=== PATIENT | female | born 1945 | race Caucasian/White ===

== ENCOUNTER 2020-02-27 14:55 | Inpatient (IN) ==
[2020-02-27] MEDS ORDERED: 0.9 % SODIUM CHLORIDE 1,000 ML IV ONE ×2 (15:09)
--- NOTE | 2020-02-27 16:25 | Emergency Department Note ---
Weakness HPI - General Chief complaint: Weakness Stated complaint: Increased labs Time Seen by Provider: 02/27/20 15:05 Source: patient Mode of arrival: ambulatory Limitations: no limitations - History of Present Illness HPI Narrative: 74-year-old female presents with general fatigue and concerned about lab results. Saw her primary care provider this morning and her BUN and creatinine were high as well as her potassium and she was sent to the ER for further evaluation. Dr. Patel with nephrology did call ahead to let us know the patient is coming. This is not a patient that is known to her but she was apparently consulted. Pt denies cough, cold symptoms, fever or chills. No nausea, vomiting, or diarrhea. She denies denies any new change in diet or medications. Has no idea what could be causing this. States she has drink a lot of fluid today and she does not think she is voiding much at all. - Related Data Home Medications Medication Instructions Recorded Confirmed dietary supplement 1 cap PO QDAY cap 07/14/16 02/27/20 pyridoxine (vitamin B6) 100 mg 100 mg PO QDAY tab 07/14/16 02/27/20 tablet vitamin B complex 1 tab PO QDAY tab 07/14/16 02/27/20 polyethylene glycol 3350 17 17 g PO QDAY PRN 01/06/17 12/07/19 gram/dose oral powder fluticasone furoate 200 1 inh INHALATION QDAY 08/18/17 02/27/20 mcg/actuation blister powder for inhalation cholecalciferol (vitamin D3) 25 1,000 unit PO QDAY 06/20/19 02/27/20 mcg (1,000 unit) capsule colesevelam 625 mg tablet 1,875 mg PO QDAY tab 06/20/19 12/07/19 multivitamin 1 dose PO QDAY 06/20/19 02/27/20 nystatin 100,000 unit/gram topical 1 applic TOPICAL TID PRN 06/20/19 12/07/19 cream spironolactone 100 mg tablet 100 mg PO QDAY 09/29/19 02/27/20 mometasone 100 mcg/actuation HFA 1 puff INHALATION BID 11/29/19 02/27/20 aerosol inhaler tiotropium 2.5 mcg-olodaterol 2.5 2 puff INHALATION QDAY 11/29/19 12/07/19 mcg/actuation mist for inhalation albuterol sulfate 2.5 mg INHALATION BID ml 11/30/19 02/27/20 lovastatin 20 mg tablet 20 mg PO QDAY 02/09/20 02/27/20 [Accu-Chek Compact Test strips] 0 er SQ .MEDSUPPLY 02/27/20 02/27/20 Previous Rx's Medication Instructions Recorded lovastatin 20 mg tablet 20 mg PO QHS #90 tab 08/30/19 potassium chloride 10 mEq 10 meq PO BID #60 tab 08/30/19 tablet,extended release gabapentin 100 mg capsule 100 mg PO QHS #30 cap 11/22/19 propranolol 40 mg tablet 20 mg PO QDAY #60 tab 12/06/19 metformin 500 mg tablet 500 mg PO BID #60 tab 12/07/19 loratadine 10 mg tablet 10 mg PO QDAY #90 tab 12/09/19 lisinopril 10 mg tablet 10 mg PO QDAY #90 tab 12/20/19 levothyroxine 25 mcg tablet See Rx Instructions .ROUTE 12/30/19 .COMPLEX #60 tablet furosemide 40 mg tablet See Rx Instructions .ROUTE 01/24/20 .COMPLEX #60 tablet alendronate 70 mg tablet See Rx Instructions .ROUTE 02/06/20 .COMPLEX #8 unknown measurement unit code: tablet sodium polystyrene sulfonate 15 60 ml PO QDAY #473 ml 02/27/20 gram/60 mL oral suspension Allergies Allergy/AdvReac Type Severity Reaction Status Date / Time Zolpidem [From Ambien] Allergy Unknown hallucinati Verified 02/27/20 15:18 ons lovastatin [From Mevacor] AdvReac Intermediate ELEVATED Verified 11/30/19 09:07 LFT Dhhfszb-Wwe-Ona Reductase AdvReac Intermediate ELEVATED Verified 02/27/20 15:18 Inhibitor LFT Review of Systems All systems ED: reviewed and negative except as stated. Past Medical History - Past Medical History COUNT INCLUDES THE [facility] Narrative: Medical History (Last Updated 02/09/20 @ 08:56 by Addie Castillo) Annual physical exam (Chronic) Severe persistent asthma with (acute) exacerbation (Chronic) Osteopenia after menopause (Chronic) Adenomatous colon polyp (Chronic) Anxiety (Chronic) Hyperlipidemia (Chronic) Schizoaffective disorder (Chronic) Hypothyroidism (Chronic) Hypertension (Chronic) Sleep disorder (Inactive) Atypical mole (Chronic) Candidiasis (Chronic) Alcohol abuse (Chronic) Lesion of liver (Chronic) ESRD (end stage renal disease) (Chronic) Steatosis of liver (Chronic) Other pruritus (Chronic) Obesity (BMI 30-39.9) (Chronic) Hamstring strain (Acute) Osteoarthritis of right knee (Acute) Deltoid tendinitis of left shoulder (Resolved) History of gallstones (Chronic) Hyperreflexic bladder (Chronic) Non-ulcer dyspepsia (Chronic) Encounter for Health Maintenance Examination in Adult (Chronic) DM w/o complication type II (Chronic 02/22/15) Asthma (Chronic) Edema (Chronic) Degenerative arthritis (Chronic) Dyslipidemia (Inactive) Elevated LFTs (Chronic) Fatty liver disease, nonalcoholic (Chronic) Cholecystitis with cholelithiasis (Chronic) Pelvic swelling, RLQ (Chronic) Insomnia (Chronic) Osteoporosis screening (Chronic) Diverticulitis of colon (Chronic) Hyperplastic colon polyp (Chronic) Dermolipoma (Chronic) Past Surgical History (Last Reviewed 12/07/19 @ 09:31 by JOSHUA Gordon) History of total right knee replacement (TKR) (Chronic ~2015) S/P excision of lipoma (Resolved 08/25/14) Hx of colonoscopy with polypectomy (Chronic 03/25/16) Medical history: Reports: other Surgical history ED: Reports: no surgical history - Social History smoking status: Never smoker Alcohol use: Reports: None Drug use: Reports: none Physical Exam Limitations: no limitations General appearance: alert Head: atraumatic, normocephalic, normal inspection Eye: Present: normal appearance. Absent: conjunctival injection ENT: Present: mucous membranes moist Chest: Present: symmetric chest wall rise Respiratory: Present: normal lung sounds bilaterally. Absent: respiratory distress, rales/crackles, wheezes, accessory muscle use Cardiovascular: Present: regular rate, normal heart sounds Abdominal: Present: soft, normal bowel sounds. Absent: distention, tenderness, guarding, mass Extremities: Present: normal inspection Neurological: Present: alert, oriented X3 Psychiatric: Present: normal affect, normal mood Skin: Present: warm, dry, intact, normal color. Absent: rash Course Course Narrative: Patient did void over 500 mils and was bladder scanned for 0 postvoid residual. We did hydrate the patient with 2 L of fluid but her being BUN and creatinine remains elevated and potassium is still 5.7. At 1800 I did speak with Dr. Gutierrez, hospitalist who agrees to accept this patient. Dr. Patel will consult. She would also like us to give the patient 40 mg of Lasix IV and we will put in a Dillon for strict I & O. Vital Signs Temperature 97.0 F 02/27/20 14:59 Pulse Rate 56 L 02/27/20 14:59 Respiratory Rate 18 02/27/20 14:59 Blood Pressure 114/62 02/27/20 14:59 Pulse Oximetry (%) 100 02/27/20 14:59 Temperature 97.0 F 02/27/20 14:59 Pulse Rate 60 02/27/20 17:53 Respiratory Rate 18 02/27/20 17:53 Blood Pressure 126/66 02/27/20 17:46 Pulse Oximetry (%) 100 02/27/20 17:53 Weakness - Lab Data Lab results reviewed: Yes I reviewed the patient's lab results. Result diagrams: 02/27/20 16:54 Lab Results 02/27/20 Range/Units 16:54 Sodium 123 L (133-145) mmol/L Potassium 5.7 H (3.3-5.1) mmol/L Chloride 91 L (96-108) mmol/L Carbon Dioxide 19 L (22-30) mmol/L Anion Gap 13.0 (8-16) BUN 82 H (8-23) mg/dl Creatinine 2.2 H (0.6-1.1) mg/dl GFR Calculation 21 Glucose 98 (70-105) mg/dL Calcium 9.5 (8.6-10.4) mg/dl Total Bilirubin 0.4 (0.0-1.0) mg/dL AST 20 (0-37) U/l ALT 16 (0-40) U/l Alkaline Phosphatase 50 (39-117) U/L Total Protein 7.3 (5.9-8.4) gm/dL Albumin 4.2 (3.2-5.2) gm/dL Globulin 3.1 (2.2-3.7) gm/dL Albumin/Globulin Ratio 1.4 (1.0-2.3) - Radiology Data Radiology results reviewed: Yes I reviewed the patient's radiology results. Disposition Pt seen by RADIATION OFFICER/PA only: Yes Clinical Impression: Renal failure, Hyperkalemia, Fatigue Disposition: Xfer As Inpt ([facility]) Condition: Fair Referrals: Pat Rivers ARNP [Primary Care Provider] -
[2020-02-27 17:50] LABS: ALT/SGPT 16 U/l (0-40); AST/SGOT 20 U/l (0-37); Albumin 4.2 gm/dL (3.2-5.2); Albumin/Globulin Ratio 1.4 (1.0-2.3); Alkaline Phosphatase 50 U/L (39-117); Bilirubin,Total 0.4 mg/dL (0.0-1.0); Blood Urea Nitrogen 82 mg/dl (8-23); Calcium 9.5 mg/dl (8.6-10.4); Carbon Dioxide 19 mmol/L (22-30); Globulin 3.1 gm/dL (2.2-3.7); Glomerular Filtration Rate 21; Glucose 98 mg/dL (70-105)
[2020-02-27 17:57] LABS: Chloride 91 mmol/L (96-108)
[2020-02-27] MEDS ORDERED: FUROSEMIDE 40 MG/4 ML VIAL IV ONE (18:02)
[2020-02-27] MEDS ORDERED: DEXTROSE 50% 50 ML VIAL IV PRN (19:35)
[2020-02-27] MEDS ORDERED: POLYETHYLENE GLYCOL 3350 17 GM PACKET PO PRN (19:35)
[2020-02-27] MEDS ORDERED: ONDANSETRON 4 MG/2 ML VIAL IV PRN (19:35)
[2020-02-27] MEDS ORDERED: ONDANSETRON 4 MG ODT TABLET SL PRN (19:35)
[2020-02-27] MEDS ORDERED: ACETAMINOPHEN 325 MG TABLET PO PRN (19:35)
[2020-02-27] MEDS ORDERED: DEXTROSE 31 GM ORAL.SUSP PO PRN (19:35)
[2020-02-27] MEDS ORDERED: ACETAMINOPHEN 650 MG/65 ML BOTTLE IV PRN (19:35)
[2020-02-27] MEDS ORDERED: BISACODYL 10 MG SUPP.RECT PR PRN (19:35)
--- NOTE | 2020-02-27 19:38 | Internal Med History&Physical ---
Medical - H&P: [facility] Patient information: Note initiated : 02/27/20 at 7:37 pm Service Date, if different from initiated Date: [] Patient: Shelia Saucedo a 74 y/o F admitted on for Increased labs. Chief Complaint: [] Chief complaint: Acute renal failure History of present illness: Ms. Saucedo is a 74 year old F with a history of diabetes/hypertension/schizoaffective disorder liver cirrhosis who presents to the ER after progressive weakness that evolved over the last 4 weeks. Her symptoms have gotten worse with increasing fatigue, malaise, difficulty functioning. She lives with her and has been trying to figure out what might be causing her symptoms. With increasing concerns today underwent evaluation and was directed to the ER with abnormal labs from her PCP. Initial work-up was consistent with acute renal failure with a BUN 82, creatinine 2.2, sodium 133 and potassium 5.7. Nephrology and hospitalist service was consulted for evaluation. At the time of my evaluation patient is alert and was able to answer most the question. She denies recent NSAID intake or diarrhea, nausea, vomiting, fever or chills. She further denies difficulty urinating or increasing frequency. She denies generalized body or extremity swelling. She endorses to less frequent voiding. Review of systems 10 point review system was performed and is negative except for ones cussed above Medical - H&P: PMH Medical history: Adenomatous colon polyp (Chronic) Anxiety (Chronic) Hyperlipidemia (Chronic) Schizoaffective disorder (Chronic) Hypothyroidism (Chronic) Hypertension (Chronic) Sleep disorder (Inactive) Atypical mole (Chronic) Candidiasis (Chronic) Alcohol abuse (Chronic) Lesion of liver (Chronic) ESRD (end stage renal disease) (Chronic) Steatosis of liver (Chronic) Other pruritus (Chronic) Obesity (BMI 30-39.9) (Chronic) Hamstring strain (Acute) Osteoarthritis of right knee (Acute) Deltoid tendinitis of left shoulder (Resolved) History of gallstones (Chronic) Hyperreflexic bladder (Chronic) Non-ulcer dyspepsia (Chronic) Encounter for Health Maintenance Examination in Adult (Chronic) DM w/o complication type II (Chronic 02/22/15) Currently Diet Treated Asthma (Chronic) Longstanding hx and has been seen by Dr. Peterson in the past but now followed routinely by Dr. Montejo and stable on current inhalers. Edema (Chronic) Chronic stasis, stable on Lasix. Degenerative arthritis (Chronic) Predominantly knees and low back- no new medication interactions at this point.Inc rt knee pain 12/2016 Dyslipidemia (Inactive) Been off the Medacor now for a full year since 2011. See hyperlipidemia Elevated LFTs (Chronic) fatty liver//alcohol overuse Fatty liver disease, nonalcoholic (Chronic) Cholecystitis with cholelithiasis (Chronic) Abdominal US in 1999 showing gallstones; CT in 07/2008 showing gallstones and fatty liver. Pelvic swelling, RLQ (Chronic) Left groin nodule, questionable etiology. Prob lipoma--CT 07/2013 w/ small rt ing hernia, follow up if changes or pain. Insomnia (Chronic) Hx of stress reaction insomnia, now off all medications in this regard and stable. Osteoporosis screening (Chronic) Normal bone density with a spinal T-score of -0.6 and hip -0.3 and stable vitamin D level 12/2009; anticipate a 5 year screening. Diverticulitis of colon (Chronic) Colonoscopy in 2005 revealing diverticuli and hyperplastic polyp, theoretically due for screening at the 10 year point but will update if constipation persists. Hyperplastic colon polyp (Chronic) Colonoscopy in 2005 revealing diverticuli and hyperplastic polyp, theoretically due for screening at the 10 year point but will update if constipation persists. Dermolipoma (Chronic) Surgical History History of total right knee replacement (TKR) (Chronic ~2015) S/P excision of lipoma (Resolved 08/25/14) Removal of lipoma left groin Hx of colonoscopy with polypectomy (Chronic 03/25/16) 03/16/06 Hyperplastic polyp and some evidence of diverticulitis, treated to clinical resolution. Theoretically due for screening at the 10 year point but will update if constipation persists.03/2016-lars polyps,recheck 5yr Family History Aunt Malignant neoplasm of breast Sister Heart problem, Onset Age: 62 some type of heart trouble Obesity Brother Acute myocardial infarction One brother had one at age 62 and a second brother at age 56. Social History household members: spouse housing: house lives independently: Yes marital status: occupational status: retired physical activity: none frequency: other smoking status: Never smoker alcohol intake frequency: 2+ drinks per day substance use type: does not use Medical - H&P: Meds Home Medications Medication Instructions Recorded Confirmed Type dietary supplement 1 cap PO QDAY cap 07/14/16 02/27/20 History pyridoxine (vitamin B6) 100 mg 100 mg PO QDAY tab 07/14/16 02/27/20 History tablet vitamin B complex 1 tab PO QDAY tab 07/14/16 02/27/20 History cholecalciferol (vitamin D3) 25 1,000 unit PO QDAY 06/20/19 02/27/20 History mcg (1,000 unit) capsule colesevelam 625 mg tablet 1,875 mg PO QDAY tab 06/20/19 02/28/20 History multivitamin 1 dose PO QDAY 06/20/19 02/27/20 History nystatin 100,000 unit/gram topical 1 applic TOPICAL TID PRN 06/20/19 02/27/20 History cream lovastatin 20 mg tablet 20 mg PO QHS #90 tab 08/30/19 02/27/20 Rx spironolactone 100 mg tablet 100 mg PO QDAY 09/29/19 02/27/20 History gabapentin 100 mg capsule 100 mg PO QHS #30 cap 11/22/19 02/27/20 Rx mometasone 100 mcg/actuation HFA 2 puff INHALATION DAILY 11/29/19 02/27/20 History aerosol inhaler tiotropium 2.5 mcg-olodaterol 2.5 2 puff INHALATION QDAY 11/29/19 02/27/20 History mcg/actuation mist for inhalation albuterol sulfate 2.5 mg INHALATION DAILY ml 11/30/19 02/27/20 History propranolol 40 mg tablet 20 mg PO QDAY #60 tab 12/06/19 02/27/20 Rx loratadine 10 mg tablet 10 mg PO QDAY #90 tab 12/09/19 02/27/20 Rx lisinopril 10 mg tablet 10 mg PO QDAY #90 tab 12/20/19 02/27/20 Rx alendronate 70 mg tablet See Rx Instructions .ROUTE 02/06/20 02/28/20 Rx .COMPLEX #8 unknown measurement unit code: tablet [Accu-Chek Compact Test strips] 0 er SQ DAILY 02/27/20 02/27/20 History Furosemide [Lasix] 40 mg PO BID 02/27/20 02/27/20 History Levothyroxine Sodium 50 mcg PO ACB 02/27/20 02/28/20 History Potassium Chloride [K-Tab ER] 10 meq PO DAILY 02/27/20 02/27/20 History metFORMIN HCL [Glucophage] 500 mg PO BID 02/27/20 02/28/20 History sodium polystyrene sulfonate 15 60 ml PO QDAY #473 ml 02/27/20 02/28/20 Rx gram/60 mL oral suspension Allergies Allergy/AdvReac Type Severity Reaction Status Date / Time lovastatin [From Mevacor] AdvReac Intermediate ELEVATED Verified 02/27/20 22:20 LFT Vxoslnn-Sgo-Uur Reductase AdvReac Intermediate ELEVATED Verified 02/27/20 22:20 Inhibitor LFT Zolpidem [From Ambien] AdvReac Mild hallucinati Verified 02/29/20 08:11 ons Medical - H&P: Exam - Constitutional Vitals: Temp Pulse Resp BP Pulse Ox 97.0 F 55 L 19 123/68 100 02/27/20 14:59 02/27/20 19:31 02/27/20 19:31 02/27/20 19:31 02/27/20 19:31 General appearance: no acute distress, obese Exam: Fatigue lethargic Head normocephalic Oral cavity dry No ear nose discharge Neck no lymphadenopathy S1-S2 occasionally irregular rhythm no murmur Diminished breath sounds bases Abdomen soft nontender Lower extremity no sinus clubbing or joint swelling Skin no suspicious lesion Psych alert cooperative Neuro nonfocal Medical - H&P: Reslt - Labs CBC & Chem 7: 02/29/20 05:20 02/29/20 05:20 Labs: BMP 02/27/20 16:54 Sodium 123 L Potassium 5.7 H Chloride 91 L Carbon Dioxide 19 L BUN 82 H Creatinine 2.2 H Glucose 98 Calcium 9.5 Liver Function 02/27/20 Range/Units 16:54 Total Bilirubin 0.4 (0.0-1.0) mg/dL AST 20 (0-37) U/l ALT 16 (0-40) U/l Alkaline Phosphatase 50 (39-117) U/L Albumin 4.2 (3.2-5.2) gm/dL Medical - H&P: A/P (1) MADINA (acute kidney injury) Current visit: Yes Status: Acute * Acute kidney injury likely second to volume depletion/diuretic use/JUAN inhibit or. nephrology consulted. Creatinine 2.2/BUN 82. Further management per nephrology * Hyperkalemia secondary MADINA. Potassium 6.1 management per nephrology * Hyponatremia likely euvolemic-check urine and serum osmolality. Free water restriction * History of cirrhosis-Patient has been on spironolactone/Lasix. No significant ascites. Well compensated. * DM type II-continue sliding-scale insulin/diabetic diet * History of hypertension held JUAN inhibitor in light of acute kidney injury * Hypothyroidism on levothyroxine * History of reactive airway disease continue tiotropium * Hyperlipidemia continue statin * Neuropathy on gabapentin * Prophylax Heparin * Full code Plan * Inpatient admission * Renal failure/hyperkalemia/hyponatremia management per nephrology * Pre-existing medical condition management as above * Diabetic diet/PT OT * Discharge planning Medical - H&P: Qual - Stroke Symptom Onset Unknown: No
--- NOTE | 2020-02-27 20:14 | Nephrology Consult Note ---
History of Present Illness - Reason for Consult Patient information: Note initiated : 02/27/20 at 8:11 pm Service Date, if different from initiated Date: [] Patient: Shelia Saucedo 74 y/o F admitted on for Increased labs. Chief Complaint: [] - History of Present Illness 74-year-old female who presented to the ED for an evaluation and management of MADINA On the day of admission I was asked to review this patient's labs by her PCP. Her PCP referred her to the ER but she initially declined to be seen in the ED. Upon review of labs she had hyperkalemia, azotemia, and MADINA. She is a patient with cirrhosis (fatty liver disease/combination with alcohol consumption), sober for 1 year, schizoaffective disorder, HTN. baseline Scr ~1.9 in november 2019. Reports she drank "a lot of fluids "but she was unable to urinate. Denies NSAID consumption, no recent imaging studies with dye. Review of Systems Constitutional: fatigue, no anorexia, no lethargy Nose, mouth and throat: no disequilibrium, no dizziness Cardiovascular: as per HPI, no edema, no palpatations Respiratory: no cough, no dyspnea Gastrointestinal: no abdominal pain, no change in bowel habits, no diarrhea, no melena, no nausea, no vomiting Musculoskeletal: no joint swelling Neurological: no confusion, no convulsions, no dizziness, no focal weakness, no syncope Past History Past medical history: Medical History (Last Updated 02/09/20 @ 08:56 by Addie Castillo) Annual physical exam (Chronic) Severe persistent asthma with (acute) exacerbation (Chronic) Osteopenia after menopause (Chronic) Adenomatous colon polyp (Chronic) Anxiety (Chronic) Hyperlipidemia (Chronic) Schizoaffective disorder (Chronic) Hypothyroidism (Chronic) Hypertension (Chronic) Sleep disorder (Inactive) Atypical mole (Chronic) Candidiasis (Chronic) Alcohol abuse (Chronic) Lesion of liver (Chronic) ESRD (end stage renal disease) (Chronic) Steatosis of liver (Chronic) Other pruritus (Chronic) Obesity (BMI 30-39.9) (Chronic) Hamstring strain (Acute) Osteoarthritis of right knee (Acute) Deltoid tendinitis of left shoulder (Resolved) History of gallstones (Chronic) Hyperreflexic bladder (Chronic) Non-ulcer dyspepsia (Chronic) Encounter for Health Maintenance Examination in Adult (Chronic) DM w/o complication type II (Chronic 02/22/15) Asthma (Chronic) Edema (Chronic) Degenerative arthritis (Chronic) Dyslipidemia (Inactive) Elevated LFTs (Chronic) Fatty liver disease, nonalcoholic (Chronic) Cholecystitis with cholelithiasis (Chronic) Pelvic swelling, RLQ (Chronic) Insomnia (Chronic) Osteoporosis screening (Chronic) Diverticulitis of colon (Chronic) Hyperplastic colon polyp (Chronic) Dermolipoma (Chronic) Past surgical history: Past Surgical History (Last Reviewed 12/07/19 @ 09:31 by JOSHUA Gordon) History of total right knee replacement (TKR) (Chronic ~2015) S/P excision of lipoma (Resolved 08/25/14) Hx of colonoscopy with polypectomy (Chronic 03/25/16) Past family history: Family History (Last Reviewed 12/07/19 @ 09:31 by JOSHUA Gordon) Aunt Malignant neoplasm of breast Sister Heart problem, Onset Age: 62 Obesity Brother Acute myocardial infarction Denies family history of renal failure, renal stones Past social history: Social History , retired. Does not smoke. No alcoholic drink in 1 year Medications and Allergies Home Medications Medication Instructions Recorded Confirmed Type dietary supplement 1 cap PO QDAY cap 07/14/16 02/27/20 History pyridoxine (vitamin B6) 100 mg 100 mg PO QDAY tab 07/14/16 02/27/20 History tablet vitamin B complex 1 tab PO QDAY tab 07/14/16 02/27/20 History cholecalciferol (vitamin D3) 25 1,000 unit PO QDAY 06/20/19 02/27/20 History mcg (1,000 unit) capsule colesevelam 625 mg tablet 1,875 mg PO QDAY tab 06/20/19 02/28/20 History multivitamin 1 dose PO QDAY 06/20/19 02/27/20 History nystatin 100,000 unit/gram topical 1 applic TOPICAL TID PRN 06/20/19 02/27/20 History cream lovastatin 20 mg tablet 20 mg PO QHS #90 tab 08/30/19 02/27/20 Rx spironolactone 100 mg tablet 100 mg PO QDAY 09/29/19 02/27/20 History gabapentin 100 mg capsule 100 mg PO QHS #30 cap 11/22/19 02/27/20 Rx mometasone 100 mcg/actuation HFA 2 puff INHALATION DAILY 11/29/19 02/27/20 History aerosol inhaler tiotropium 2.5 mcg-olodaterol 2.5 2 puff INHALATION QDAY 11/29/19 02/27/20 History mcg/actuation mist for inhalation albuterol sulfate 2.5 mg INHALATION DAILY ml 11/30/19 02/27/20 History propranolol 40 mg tablet 20 mg PO QDAY #60 tab 12/06/19 02/27/20 Rx loratadine 10 mg tablet 10 mg PO QDAY #90 tab 12/09/19 02/27/20 Rx lisinopril 10 mg tablet 10 mg PO QDAY #90 tab 12/20/19 02/27/20 Rx alendronate 70 mg tablet See Rx Instructions .ROUTE 02/06/20 02/28/20 Rx .COMPLEX #8 unknown measurement unit code: tablet [Accu-Chek Compact Test strips] 0 er SQ DAILY 02/27/20 02/27/20 History Furosemide [Lasix] 40 mg PO BID 02/27/20 02/27/20 History Levothyroxine Sodium 50 mcg PO ACB 02/27/20 02/28/20 History Potassium Chloride [K-Tab ER] 10 meq PO DAILY 02/27/20 02/27/20 History metFORMIN HCL [Glucophage] 500 mg PO BID 02/27/20 02/28/20 History sodium polystyrene sulfonate 15 60 ml PO QDAY #473 ml 02/27/20 02/28/20 Rx gram/60 mL oral suspension Allergies Allergy/AdvReac Type Severity Reaction Status Date / Time lovastatin [From Mevacor] AdvReac Intermediate ELEVATED Verified 02/27/20 22:20 LFT Pcufsie-Nkw-Sme Reductase AdvReac Intermediate ELEVATED Verified 02/27/20 22:20 Inhibitor LFT Zolpidem [From Ambien] AdvReac Mild hallucinati Verified 02/29/20 08:11 ons Exam - Vital Signs Vital signs: Temp Pulse Resp BP Pulse Ox 36.1 C 64 9 L 130/51 100 02/27/20 14:59 02/27/20 20:01 02/27/20 20:01 02/27/20 20:01 02/27/20 20:01 - General Appearance General appearance: obese Exam Narrative: General no acute distress. Obese with BMI 34.7 HEENT head normocephalic, atraumatic. Eyes nonicteric sclera. Moist oral mucosa Neck no JVD Respiratory nonlabored respirations, on room air, lungs clear to auscultation bilaterally Cardiovascular regular rate and rhythm, no rubs, no gallop. No lower extremity edema. Abdomen soft, distended, nontender, present bowel sounds Neurologic no asterixis, alert, oriented, clear speech, moves all extremities Skin is warm and dry, no rashes on exposed areas Psychiatric patient appears concerned with her current kidney function appropriate affect. Results - Lab Results 02/29/20 05:20 02/29/20 05:20 Most recent lab results Calcium 9.5 mg/dl (8.6-10.4) 02/27/20 16:54 Assessment and Plan (1) MADINA (acute kidney injury) Status: Acute Priority: High (2) Azotemia Status: Acute Priority: Medium (3) Hyperkalemia Status: Acute Priority: High (4) Fatigue Status: Acute - Narrative A/P Narrative: This is a late entry for the visit and emergency department 02/27/2020 MADINA; probable CKD Hyperkalemia Within the limitation of not having a blood gas, suspect metabolic acidosis in the setting of MADINA Severe azotemia, no wilmer uremia. By the time I saw the patient she had received approximately 2 L of normal saline. check ua, renal ultrasound, urine osm, urine Na, urea and K check serum osmolality, with renal function panel. recheck serum Na in 4 hours. strict I/O avoid nephrotoxins. no ACEi, no metformin, no Mg of phospate containing stool softeners. agree to hold spironolactone. It will take a few days for the spironolactone to clear out of her system, provided she continues to have urine output, I expect her hyperkalemia to resolve slowly.
[2020-02-27] MEDS ORDERED: LOVASTATIN 20 MG TABLET PO SCH (21:00)
[2020-02-27] MEDS: GABAPENTIN 100 MG CAPSULE PO SCH (21:55)
[2020-02-27] MEDS: DOCUSATE SODIUM 100 MG CAPSULE PO SCH (21:55)
[2020-02-27] MEDS: SENNOSIDES/DOCUSATE SODIUM 1 TAB TABLET PO SCH (21:55)
[2020-02-27] MEDS: SIMVASTATIN 10 MG TABLET PO SCH (21:56)
[2020-02-27] MEDS: 0.9 % SODIUM CHLORIDE 10 ML SYRINGE IV SCH (22:00)
[2020-02-27] MEDS: HEPARIN 5,000 UNIT/ML VIAL SQ SCH (22:01)
[2020-02-27 22:19] LABS: Appearance,Urine TURBID; Bilirubin,Urine NEG (NEG); Color,Urine YELLOW; Culture Indicated,Urine NO; Glucose,Urine (UA) NEGATIVE (NEG); Ketones,Urine NEG (NEG); Leukocyte Esterase,Urine NEG /uL (NEG); Nitrate,Urine NEG (NEG); Protein,Urine NEG (NEG); Urine Blood NEG mg/dL (<0.03); Urobilinogen,Urine NEG (NEG)
[2020-02-27] MEDS: INSULIN LISPRO 1 UNIT/0.01 ML UNIT SQ SCH (22:26)
[2020-02-27] MEDS: MELATONIN 3 MG TABLET PO PRN (22:27)
[2020-02-27 23:18] LABS: Sodium, Urine Random 98 mmol/L
[2020-02-27 23:36] LABS: Osmolality,Urine 267 mOsm/kg (80-1000)
[2020-02-28 06:39] LABS: Hematocrit 33.8 % (34.1-44.9); Hemoglobin 11.4 g/dL (11.2-15.7); Mean Cell Volume 93.4 fL (80.0-100.0); Mean Corpuscular HGB Conc 33.7 g/dL (31.0-36.0); Mean Platelet Volume 11.3 fL (7.4-10.4); Platelet Count 293 K/mcL (140-440); RBC 3.62 M/mcL (3.59-5.38); WBC 8.8 K/mcL (4.50-11.00)
--- NOTE | 2020-02-28 06:53 | Ultrasound Report ---
CLINICAL INFORMATION: Acute renal failure TECHNIQUE: Grayscale and color flow Doppler spectral imaging COMPARISON: None. FINDINGS: Right kidney measures 11.4 x 5.2 x 6.4 cm. Right renal pelvis is prominent consistent with extrarenal pelvis. There is no hydronephrosis. No solid or cystic mass. Renal cortex is mildly echogenic consistent with medical renal disease. Left kidney measures 10.4 x 4.4 x 4.2 cm. No solid or cystic mass. There is no hydronephrosis. Left renal cortex is mildly echogenic consistent with medical renal disease. There is a Dillon catheter in place and the bladder was not evaluated IMPRESSION: 1. No hydronephrosis. 2. Mildly echogenic renal cortex bilaterally Interpreted and Authenticated by: Claudio Flores 02/28/20
[2020-02-28 06:58] LABS: ALT/SGPT 15 U/l (0-40); AST/SGOT 18 U/l (0-37); Albumin 3.9 gm/dL (3.2-5.2); Albumin/Globulin Ratio 1.3 (1.0-2.3); Alkaline Phosphatase 45 U/L (39-117); Bilirubin,Direct < 0.2 mg/dL (0.0-0.3); Bilirubin,Total 0.4 mg/dL (0.0-1.0); Blood Urea Nitrogen 83 mg/dl (8-23); Calcium 9.1 mg/dl (8.6-10.4); Carbon Dioxide 17 mmol/L (22-30); Chloride 98 mmol/L (96-108); Globulin 2.9 gm/dL (2.2-3.7); Glomerular Filtration Rate 20; Glucose 90 mg/dL (70-105); Lactate Dehydrogenase 182 U/L (94-250); Phosphorous 4.9 mg/dL (2.7-4.5); Triglycerides 182 mg/dl (<150); Uric Acid 10.3 mg/dL (2.5-8.0)
[2020-02-28] MEDS: INSULIN LISPRO 1 UNIT/0.01 ML UNIT SQ SCH ×4 (07:30→21:27)
[2020-02-28] MEDS: 0.9 % SODIUM CHLORIDE 10 ML SYRINGE IV SCH ×3 (07:32→21:29)
[2020-02-28 08:02] LABS: Band Neutrophils % 1 % (0-10); Eosinophils % (Manual) 1 % (0-7); Lymphocytes % 21 % (15-49); Monocytes % (Manual) 9 % (1-12); Platelet Estimate NORMAL (NORMAL); RBC Morphology NORMAL (NORMAL); Reactive Lymphocytes 4 % (0-2); Segmented Neutrophils % 64 % (38-78)
[2020-02-28] MEDS ORDERED: OLODATEROL HCL INHALATION SCH (09:00)
[2020-02-28] MEDS ORDERED: MOMETASONE FUROATE INHALATION SCH (09:00)
[2020-02-28] MEDS ORDERED: TIOTROPIUM BR INHALATION SCH (09:00)
[2020-02-28] MEDS ORDERED: [UNRECOGNIZED DRUG - OTHER] INHALATION SCH (09:00)
[2020-02-28] MEDS ORDERED: FLUTICASONE FUROATE INHALATION SCH (09:00)
[2020-02-28] MEDS ORDERED: [UNRECOGNIZED DRUG - OTHER] SQ SCH (09:00)
[2020-02-28] MEDS: ALBUTEROL SULFATE 2.5 MG/3 ML NEBULIZER INH SCH (09:24)
[2020-02-28] MEDS: PROPRANOLOL 40 MG TABLET PO SCH (09:25)
[2020-02-28] MEDS: MULTIVIT,THER IRON,CA,FA & MIN 1 TABLET PO SCH (10:01)
[2020-02-28] MEDS: PYRIDOXINE 100 MG TABLET PO SCH (10:01)
[2020-02-28] MEDS: DOCUSATE SODIUM 100 MG CAPSULE PO SCH ×2 (10:01→21:28)
[2020-02-28] MEDS: LEVOTHYROXINE 25 MCG TABLET PO SCH (10:01)
[2020-02-28] MEDS: LORATADINE 10 MG TABLET PO SCH (10:01)
[2020-02-28] MEDS: HEPARIN 5,000 UNIT/ML VIAL SQ SCH ×2 (10:04→21:27)
--- NOTE | 2020-02-28 11:39 | Internal Med Progress Note ---
Medical - PN: Subj Patient information: Note initiated : 02/28/20 at 11:38 am Service Date, if different from initiated Date: [] Patient: Shelia Saucedo a 74 y/o F admitted on 02/27/20 for Increased labs. Chief Complaint: [] Interval history: Ms. Saucedo is a 74 year old F with a history of diabetes/hypertension/schi zoaffective disorder liver cirrhosis who presents to the ER after progressive weakness that evolved over the last 4 weeks. Her symptoms have gotten worse with increasing fatigue, malaise, difficulty functioning. She lives with her and has been trying to figure out what might be causing her symptoms. With increasing concerns today underwent evaluation and was directed to the ER with abnormal labs from her PCP. Initial work-up was consistent with acute renal failure with a BUN 82, cre atinine 2.2, sodium 133 and potassium 5.7. Nephrology and hospitalist service was consulted for evaluation. At the time of my evaluation patient is alert and was able to answer most the question. She denies recent NSAID intake or diarrhea, nausea, vomiting, fever or chills. She further denies difficulty urinating or increasing frequency. She denies generalized body or extremity swelling. She endorses to less frequent voiding. 02/27-patient doing well. However creatinine slightly elevated at 2.3. Sodium 128. Continue every 4 hours sodium checks. No overnight fever chills. Ongoing management per nephrology. Renal ultrasound no evidence of hydronephrosis, still systolics around 110. No concerns expressed by nursing staff - Constitutional Vitals: Vital Signs Temp Pulse Resp BP Pulse Ox 97.6 F 70 18 101/67 98 02/28/20 06:00 02/28/20 06:00 02/28/20 06:00 02/28/20 06:00 02/28/20 06:00 Period Temp Pulse Resp BP Sys/Dockery Pulse Ox Last 24 Hr 96.9 F-98.0 F 52-72 9-65 73-134/45-94 95-100 Intake and Output 02/27/20 02/28/20 02/28/20 21:59 05:59 13:59 Intake Total 1999 1350 Output Total 2049 2074 850 Balance -50 -1875 500 Weight 202 lb 8 oz Intake & Output: Intake & Output 02/27/20 02/28/20 02/28/20 21:59 05:59 13:59 Intake Total 1999 200 1350 Output Total 2049 2074 850 Balance -50 -1875 500 Weight 202 lb 8 oz Intake: IV 1999 Sodium Chloride 0.9% 1,000 ml @ 2000 Wide Open IV BOLUS ONE Rx#: [id number] Oral 200 1350 Output: Urine Catheter Amount 2049 2074 850 Other: Urine Appearance Clear Clear Uretheral (Dillon) Clear Urine Color Pale Pale Uretheral (Dillon) Pale Urine Odor Normal General appearance: no acute distress, obese - Head Additional comments: Nonlabored breathing alert oriented Nondistended abdomen No anxiety Medical - PN: Obj Da - Labs CBC & Chem 7: 02/29/20 05:20 02/29/20 05:20 Labs: Abnormal Lab Results 02/28/20 02/28/20 02/28/20 08:11 05:45 05:45 Hct 33.8 L MPV 11.3 H Reactive Lymphocytes 4 H Sodium 128 L 131 L Potassium Chloride Carbon Dioxide 17 L BUN 83 H Creatinine 2.3 H Osmolality 303 H Uric Acid 10.3 H Phosphorus 4.9 H Triglycerides 182 H 02/27/20 16:54 Hct MPV Reactive Lymphocytes Sodium 123 L Potassium 5.7 H Chloride 91 L Carbon Dioxide 19 L BUN 82 H Creatinine 2.2 H Osmolality Uric Acid Phosphorus Triglycerides Meds: Medications Acetaminophen (Tylenol) 650 mg PO Q4-6HP PRN; Protocol PRN Reason: Per Pain Protocol/Fever > 101 Albuterol Sulfate (Ventolin) 2.5 mg INH DAILY [facility] Last Admin: 02/28/20 09:24 Dose: Not Given Documented by: Bisacodyl (Dulcolax) 10 mg NH Q2-3DAYS PRN PRN Reason: Constipation Dextrose (Dextrose 50%) 0 ml IV UD PRN PRN Reason: Hypoglycemia Diagnostic Test (Pha) (Accu-Chek) 1 each FS ACHS [facility] Last Admin: 02/28/20 11:30 Dose: 1 each Documented by: Docusate Sodium (Colace) 100 mg PO BID [facility] Last Admin: 02/28/20 10:01 Dose: 100 mg Documented by: Gabapentin (Neurontin) 100 mg PO QHS [facility] Last Admin: 02/27/20 21:55 Dose: 100 mg Documented by: Glucose (Insta-Glucose) 15 gm PO PRN PRN PRN Reason: Hypoglycemia Heparin Sodium (Porcine) (Heparin) 5,000 unit SQ Q12 [facility] Last Admin: 02/28/20 10:04 Dose: 5,000 unit Documented by: Acetaminophen (Ofirmev) 650 mg in 65 mls @ 130 mls/hr IV Q6HP PRN; Protocol PRN Reason: Per Pain Protocol/Fever > 101 Insulin Human Lispro (Humalog) 0 unit SQ ACHS [facility]; Protocol Last Admin: 02/28/20 11:31 Dose: Not Given Documented by: Iron Carb/Multivit/Cold Working Supervisor/Folic Acid (Multivitamin W/Minerals) 1 tab PO DAILY [facility] Last Admin: 02/28/20 10:01 Dose: 1 tab Documented by: Levothyroxine Sodium (Synthroid) 50 mcg PO ACB [facility] Last Admin: 02/28/20 10:01 Dose: 50 mcg Documented by: Loratadine (Claritin) 10 mg PO QDAY [facility] Last Admin: 02/28/20 10:01 Dose: 10 mg Documented by: Melatonin (Melatonin 3mg Tablet) 3 mg PO HSP PRN PRN Reason: Insomnia Last Admin: 02/27/20 22:27 Dose: 3 mg Documented by: Non-Formulary Medication (Fluticasone Furoate [Arnuity Ellipta]) 1 inh INHALATION QDAY [facility] Last Admin: 02/28/20 09:24 Dose: Not Given Documented by: Non-Formulary Medication (Mometasone Furoate [Asmanex Hfa]) 2 puff INHALATION DAILY [facility] Last Admin: 02/28/20 09:24 Dose: Not Given Documented by: Non-Formulary Medication (Tiotropium Br/Olodaterol Hcl [Stiolto Respimat Inhal Faxon]) 2 puff INHALATION QDAY [facility] Last Admin: 02/28/20 09:24 Dose: Not Given Documented by: Ondansetron HCl (Zofran Odt) 4 mg SL Q4-6HP PRN; Protocol PRN Reason: Nausea And Vomiting Ondansetron HCl (Zofran) 4 mg IV Q4-6HP PRN; Protocol PRN Reason: Nausea And Vomiting Polyethylene Glycol (Miralax) 17 gm PO DAILYP PRN PRN Reason: Constipation Propranolol HCl (Inderal) 20 mg PO QDAY [facility] Last Admin: 02/28/20 09:25 Dose: Not Given Documented by: Pyridoxine HCl (Vitamin B-6) 100 mg PO QDAY [facility] Last Admin: 02/28/20 10:01 Dose: 100 mg Documented by: Senna/Docusate Sodium (Senna Plus Tablet) 1 tab PO [facility] Last Admin: 02/27/20 21:55 Dose: 1 tab Documented by: Simvastatin (Zocor) 5 mg PO [facility] Last Admin: 02/27/20 21:56 Dose: 5 mg Documented by: Sodium Chloride (Saline Flush) 10 ml IV Q8 [facility] Last Admin: 02/28/20 07:32 Dose: 10 ml Documented by: Medical - PN: A/P - Time Spent With Patient Total time spent is greater than 50% in coordination of care (as documented) at patient's floor/unit and/or counseling patient: 25 - 35 minutes (1) MADINA (acute kidney injury) Status: Acute Assessment and plan: * Acute kidney injury likely second to volume depletion/diuretic use/JUAN inhibitor. Nephrology On board. Creatinine 2.3 * Hyperkalemia secondary MADINA. 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 Check for hourly sodium * History of cirrhosis-Patient has been on spironolactone * DM type II-continue sliding-scale insulin/diabetic diet * History of hypertension hold JUAN inhibitor * Hypothyroidism on levothyroxine * History of reactive airway disease continue tiotropium * Hyperlipidemia continue statin * Neuropathy on gabapentin * Prophylax Heparin * Full code Plan * Renal failure/hyperkalemia/hyponatremia management per nephrology * Pre-existing medical condition management as above * 4 hourly sodium checks * Diabetic diet/PT OT * Discharge planning Current Visit: Yes Medical - PN: Qual - Stroke Symptom Onset Unknown: No - VTE Deep Vein Thrombosis/Pulmonary Embolism Present on Admission: No
--- NOTE | 2020-02-28 17:48 | Nephrology Progress Note ---
Subjective Patient information: Note initiated : 02/28/20 at 5:48 pm Service Date, if different from initiated Date: [] Patient: Shelia Saucedo 74 y/o F admitted on 02/27/20 for Increased labs. Chief Complaint: [] Principal diagnosis: MADINA Interval history: Good urine output. She received 40 mg of furosemide 02/27/2020 Hyponatremia improved. Denies nausea, vomiting, confusion, swelling, shortness of breath Objective - Vital Signs Vital signs: Vital Signs Temp Pulse Pulse Resp BP BP BP 02/28/20 16:00 36.7 C 63 18 104/67 02/28/20 12:00 36.4 C 82 20 106/71 02/28/20 06:00 36.4 C 70 18 101/67 02/28/20 03:58 91/55 02/28/20 03:54 36.7 C 68 12 73/45 02/27/20 22:52 36.6 C 72 12 80/49 02/27/20 20:29 36.1 C L 61 10 L 123/57 02/27/20 20:20 62 20 02/27/20 20:16 56 L 11 L 121/57 02/27/20 20:01 64 9 L 130/51 02/27/20 19:50 64 17 02/27/20 19:46 59 L 15 111/80 02/27/20 19:31 55 L 19 123/68 02/27/20 19:16 52 L 15 124/62 02/27/20 19:01 53 L 14 121/60 02/27/20 18:52 55 L 20 02/27/20 18:46 60 25 H 129/67 02/27/20 18:41 58 L 37 H 02/27/20 18:31 57 L 9 L 134/68 02/27/20 18:29 58 L 11 L 02/27/20 18:16 59 L 30 H 113/60 02/27/20 18:01 63 39 H 122/65 02/27/20 17:53 60 18 Pulse Ox 02/28/20 16:00 99 02/28/20 12:00 97 02/28/20 06:00 98 02/28/20 03:58 02/28/20 03:54 95 02/27/20 22:52 96 02/27/20 20:29 98 02/27/20 20:20 100 02/27/20 20:16 100 02/27/20 20:01 100 02/27/20 19:50 100 02/27/20 19:46 100 02/27/20 19:31 100 02/27/20 19:16 100 02/27/20 19:01 100 02/27/20 18:52 100 02/27/20 18:46 100 02/27/20 18:41 100 02/27/20 18:31 100 02/27/20 18:29 100 02/27/20 18:16 99 02/27/20 18:01 97 02/27/20 17:53 100 Intake and Output 02/28/20 02/28/20 02/28/20 05:59 13:59 21:59 Intake Total 200 2390 800 Output Total 2074 1650 800 Balance -1875 740 0 Intake: Oral 200 2390 800 Output: Urine Catheter Amount 20740 800 Other: Meal Lunch Dinner Percent of Meal Consumed 100% 50% Feeding Ability Assist with Tray Set Up Independent Urine Appearance Clear Clear Clear Uretheral (Dillon) Clear Urine Color Pale Straw Pale Uretheral (Dillon) Pale Urine Odor Normal Normal Normal Weight 91.852 kg Patient Weight 02/29/20 05:59 Weight 91.852 kg Intake & Output: Intake & Output 02/28/20 02/28/20 02/28/20 05:59 13:59 21:59 Intake Total 200 2390 800 Output Total 2074 1650 800 Balance -1875 740 0 Weight 91.852 kg Intake: Oral 200 2390 800 Output: Urine Catheter Amount 20740 800 Other: Meal Lunch Dinner Percent of Meal Consumed 100% 50% Feeding Ability Assist with Tray Set Up Independent Urine Appearance Clear Clear Clear Uretheral (Dillon) Clear Urine Color Pale Straw Pale Uretheral (Dillon) Pale Urine Odor Normal Normal Normal - General Appearance General appearance: obese EENT: ATNC Cardiology: no edema Gastrointestinal: normoactive bowel sounds, no tenderness, no guarding Integumentary: warm and dry - Lab 02/29/20 05:20 02/29/20 05:20 Most recent lab results Calcium 9.1 mg/dl (8.6-10.4) 02/28/20 05:45 Phosphorus 4.9 mg/dL (2.7-4.5) H 02/28/20 05:45 Magnesium 2.2 mg/dL (1.6-2.5) 02/28/20 05:45 Assessment and Plan (1) MADINA (acute kidney injury) Status: Acute Priority: High (2) Azotemia Status: Acute Priority: Medium (3) Hyperkalemia Status: Acute Priority: High (4) Fatigue Status: Acute - Narrative A/P Narrative: This is a late entry for the visit 02/28/2020, around 8 AM SCR 2.3, patient has MADINA. ? CKD as her serum creatinine was elevated in November 2019. DDX intrinsic, probable component of post renal or urinary retention/reflux nephropathy. Continue strict I's and O's, avoid nephrotoxins, daily weight. Blood pressure lowering agents on hold. Agree. Hemodynamics and volume Clinically euvolemic, normotensive to low normal blood pressure. Acid-base within the limitation of not having a blood gas, suspect metabolic acidosis secondary to renal disease Bone mineral calcium, magnesium within lab reference range. Mild hyperphosphatemia. No indication for phosphate binder at this point Continue renal diet Hematologic White count, platelet count, hemoglobin within lab reference range
[2020-02-28] MEDS ORDERED: FUROSEMIDE 20 MG/2 ML VIAL IV ONE (18:09)
[2020-02-28 20:15] LABS: Chloride,Urine Random < 20 mmol/L; Potassium,Urine Random 12.9 mmol/L
[2020-02-28 20:18] LABS: Osmolality,Urine 217 mOsm/kg (80-1000)
[2020-02-28 21:15] LABS: Blood Urea Nitrogen 67 mg/dl (8-23); Calcium 9.6 mg/dl (8.6-10.4); Carbon Dioxide 19 mmol/L (22-30); Glucose 119 mg/dL (70-105)
[2020-02-28 21:17] LABS: Chloride 94 mmol/L (96-108); Glomerular Filtration Rate 31; Phosphorous 3.3 mg/dL (2.7-4.5)
[2020-02-28] MEDS: SIMVASTATIN 10 MG TABLET PO SCH (21:28)
[2020-02-28] MEDS: SENNOSIDES/DOCUSATE SODIUM 1 TAB TABLET PO SCH (21:29)
[2020-02-28] MEDS: GABAPENTIN 100 MG CAPSULE PO SCH (21:29)
[2020-02-28] MEDS: MELATONIN 3 MG TABLET PO PRN (21:29)
[2020-02-29] MEDS: traZODone HCL 50 MG TABLET PO PRN ×2 (00:28→20:32)
[2020-02-29] MEDS ORDERED: traZODone HCL 50 MG TABLET ONE (00:33)
[2020-02-29] MEDS: 0.9 % SODIUM CHLORIDE 10 ML SYRINGE IV SCH ×3 (04:35→20:33)
[2020-02-29 06:26] LABS: Hematocrit 33.8 % (34.1-44.9); Hemoglobin 11.7 g/dL (11.2-15.7); Mean Cell Volume 91.1 fL (80.0-100.0); Mean Corpuscular HGB Conc 34.6 g/dL (31.0-36.0); Mean Platelet Volume 11.3 fL (7.4-10.4); Platelet Count 289 K/mcL (140-440); RBC 3.71 M/mcL (3.59-5.38); Red Cell Distribution Width 12.1 % (11.5-14.5); WBC 7.8 K/mcL (4.50-11.00)
[2020-02-29 06:45] LABS: ALT/SGPT 14 U/l (0-40); AST/SGOT 18 U/l (0-37); Albumin 3.9 gm/dL (3.2-5.2); Albumin/Globulin Ratio 1.3 (1.0-2.3); Alkaline Phosphatase 46 U/L (39-117); Bilirubin,Direct < 0.2 mg/dL (0.0-0.3); Bilirubin,Total 0.5 mg/dL (0.0-1.0); Blood Urea Nitrogen 66 mg/dl (8-23); Calcium 9.6 mg/dl (8.6-10.4); Carbon Dioxide 16 mmol/L (22-30); Chloride 98 mmol/L (96-108); Globulin 3.1 gm/dL (2.2-3.7); Glomerular Filtration Rate 29; Glucose 103 mg/dL (70-105); Lactate Dehydrogenase 167 U/L (94-250); Phosphorous 4.4 mg/dL (2.7-4.5); Triglycerides 151 mg/dl (<150); Uric Acid 9.7 mg/dL (2.5-8.0)
[2020-02-29] MEDS: LEVOTHYROXINE 25 MCG TABLET PO SCH (07:19)
[2020-02-29] MEDS: INSULIN LISPRO 1 UNIT/0.01 ML UNIT SQ SCH ×4 (07:22→21:30)
--- NOTE | 2020-02-29 07:23 | Nephrology Progress Note ---
Subjective Patient information: Note initiated : 02/29/20 at 7:20 am Service Date, if different from initiated Date: [] Patient: Shelia Saucedo 74 y/o F admitted on 02/27/20 for Increased labs. Chief Complaint: [] Principal diagnosis: madina Interval history: Serum sodium improved and so did renal function Blood pressure remains low normal, she is asymptomatic. Did not sleep good last night, feels tired I/03 0.2/4.2, -1 L. Physical exam At the time of my visit the patient was laying in the bed. In no acute distress Vital signs reviewed HEENT head is normocephalic and atraumatic. Eyes nonicteric sclera Chest nonlabored respirations, clear to auscultation bilaterally Cardiovascular regular rate and rhythm, no edema Abdomen slightly distended, obese Neuro alert, clear speech Objective - Vital Signs Vital signs: Vital Signs Temp Pulse Resp BP BP Pulse Ox 02/29/20 06:04 92 H 87/61 02/29/20 04:41 96/58 02/29/20 04:36 88/54 02/29/20 03:56 36.8 C 83 12 81/55 95 02/28/20 23:35 36.3 C 76 16 113/70 94 02/28/20 21:38 78 112/67 02/28/20 19:35 36.8 C 73 14 108/64 97 02/28/20 18:00 36.5 C 73 18 99/60 97 02/28/20 16:00 36.7 C 63 18 104/67 99 02/28/20 12:00 36.4 C 82 20 106/71 97 Intake and Output 02/28/20 02/29/20 02/29/20 21:59 05:59 13:59 Intake Total 800 0 Output Total 1700 925 Balance -900 -925 Intake: Oral 800 0 Output: Urine Catheter Amount 1700 925 Other: Meal Nourishment/Supplement Percent of Meal Consumed 100% Feeding Ability Independent Urine Appearance Clear Clear Uretheral (Dillon) Clear Urine Color Pale Bright Yellow Uretheral (Dillon) Pale Urine Odor Normal Stool Size Smear Weight 92.986 kg Intake & Output: Intake & Output 02/28/20 02/29/20 02/29/20 21:59 05:59 13:59 Intake Total 800 0 Output Total 1700 925 Balance -900 -925 Weight 92.986 kg Intake: Oral 800 0 Output: Urine Catheter Amount 1700 925 Other: Meal Nourishment/Supplement Percent of Meal Consumed 100% Feeding Ability Independent Urine Appearance Clear Clear Uretheral (Dillon) Clear Urine Color Pale Bright Yellow Uretheral (Dillon) Pale Urine Odor Normal Stool Size Smear - Lab 02/29/20 05:20 02/29/20 05:20 Most recent lab results Calcium 9.6 mg/dl (8.6-10.4) 02/29/20 05:20 Phosphorus 4.4 mg/dL (2.7-4.5) 02/29/20 05:20 Magnesium 2.3 mg/dL (1.6-2.5) 02/29/20 05:20 Assessment and Plan (1) MADINA (acute kidney injury) Status: Acute Priority: High (2) Azotemia Status: Acute Priority: Medium (3) Hyperkalemia Status: Acute Priority: High (4) Fatigue Status: Acute - Narrative A/P Narrative: MADINA improving, SCR 1.7, EGFR 29. SCR 2.5 on admission, 02/27/2020 Fe urea 41.3. She was on spironolactone, lisinopril, had urinary retention, when the Dillon was placed there was 1 L UO. 02/27/2020 UA dipstick negative. 02/28/2020 urine osmolality 217, na 27, potassium 12.9, chloride less than 20. 02/27/2020 renal ultrasound R 11.4 cm, extrarenal pelvis. L 10.4 cm. Mildly echogenic renal cortex bilaterally. No hydronephrosis *Remove Dillon today for voiding trial. Bladder scan in 6 hours *Strict I's and O's Hemodynamics and volume Serum albumin 3.9. No echocardiogram available for review The patient has cirrhosis. She has asymptomatic hyponatremia, acute. Cortisol and TSH were within lab reference range *water restriction 1.6 L/day *Recheck renal function panel this afternoon BUN/K Azotemia improving, 66. Mild hyperkalemia 5.2. *RFP as above Acid-base Bicarbonate 16. In the setting of MADINA *If bicarbonate remains low this afternoon, start 650 mg p.o. daily Bone mineral Calcium, phosphorus, magnesium within lab reference range Hematologic White count platelet count within lab reference range. Hemoglobin 11.7.
[2020-02-29 08:06] LABS: Basophils % (Manual) 1 % (0-2); Eosinophils % (Manual) 2 % (0-7); Lymphocytes % 35 % (15-49); Monocytes % (Manual) 13 % (1-12); Platelet Estimate NORMAL (NORMAL); RBC Morphology NORMAL (NORMAL); Reactive Lymphocytes 2 % (0-2); Segmented Neutrophils % 47 % (38-78)
[2020-02-29] MEDS: PROPRANOLOL 40 MG TABLET PO SCH (08:47)
[2020-02-29] MEDS: HEPARIN 5,000 UNIT/ML VIAL SQ SCH ×2 (08:47→20:31)
[2020-02-29] MEDS: MULTIVIT,THER IRON,CA,FA & MIN 1 TABLET PO SCH (08:48)
[2020-02-29] MEDS: PYRIDOXINE 100 MG TABLET PO SCH (08:48)
[2020-02-29] MEDS: DOCUSATE SODIUM 100 MG CAPSULE PO SCH ×2 (08:48→20:32)
[2020-02-29] MEDS: LORATADINE 10 MG TABLET PO SCH (08:48)
[2020-02-29] MEDS: MOMETASONE FUROATE INH SCH (08:49)
[2020-02-29] MEDS: Tiotropium Br/Olodaterol Hcl [Stiolto Respimat Inhaler] INH SCH (08:50)
--- NOTE | 2020-02-29 09:42 | Internal Med Progress Note ---
Medical - PN: Subj Patient information: Note initiated : 02/29/20 at 9:39 am Service Date, if different from initiated Date: [] Patient: Shelia Saucedo a 74 y/o F admitted on 02/27/20 for Increased labs. Chief Complaint: [] Interval history: Ms. Saucedo is a 74 year old F with a history of diabetes/hypertension/schiz oaffective disorder liver cirrhosis who presents to the ER after progressive weakness that evolved over the last 4 weeks. Her symptoms have gotten worse with increasing fatigue, malaise, difficulty functioning. She lives with her and has been trying to figure out what might be causing her symptoms. With increasing concerns today underwent evaluation and was directed to the ER with abnormal labs from her PCP. Initial work-up was consistent with acute renal failure with a BUN 82, crea tinine 2.2, sodium 133 and potassium 5.7. Nephrology and hospitalist service was consulted for evaluation. At the time of my evaluation patient is alert and was able to answer most the question. She denies recent NSAID intake or diarrhea, nausea, vomiting, fever or chills. She further denies difficulty urinating or increasing frequency. She denies generalized body or extremity swelling. She endorses to less frequent voiding. 02/27-patient doing well. However creatinine slightly elevated at 2.3. Sodium 128. Continue every 4 hours sodium checks. No overnight fever chills. Ongoing management per nephrology. Renal ultrasound no evidence of hydronephrosis, still systolics around 110. No concerns expressed by nursing staff 02/28-patient doing well. No overnight events. No concerns per staff. Creatinine down to 1.7, sodium 129. Potassium 5.2. Hemodynamic stable except for systolics around low 90s. Asymptomatic. Tolerating diet and ambulating. Ongoing physical therapy. Anticipate discharge in 24 hours pending clinical improvement. - Constitutional Vitals: Vital Signs Temp Pulse Resp BP Pulse Ox 98.6 F 97 H 14 138/73 94 02/29/20 08:00 02/29/20 08:00 02/29/20 08:00 02/29/20 08:00 02/29/20 08:00 Period Temp Pulse Resp BP Sys/Dockery Pulse Ox Last 24 Hr 97.4 F-98.6 F 63-97 11-04 81-138/54-73 94-99 Intake and Output 02/28/20 02/29/20 02/29/20 21:59 05:59 13:59 Intake Total 800 0 Output Total 1700 925 Balance -900 -925 Weight 205 lb Intake & Output: Intake & Output 02/28/20 02/29/20 02/29/20 21:59 05:59 13:59 Intake Total 800 0 Output Total 1700 925 Balance -900 -925 Weight 205 lb Intake: Oral 800 0 Output: Urine Catheter Amount 1700 925 Other: Meal Nourishment/Supplement Percent of Meal Consumed 100% Feeding Ability Independent Urine Appearance Clear Clear Uretheral (Dillon) Clear Clear Urine Color Pale Bright Yellow Uretheral (Dillon) Pale Bright Yellow Urine Odor Normal Stool Size Smear General appearance: no acute distress Exam: Alert oriented no anxiety Nonlabored breathing Nondistended abdomen Dillon is discontinued Medical - PN: Obj Da - Labs CBC & Chem 7: 02/29/20 05:20 02/29/20 05:20 Labs: Abnormal Lab Results 02/29/20 02/29/20 02/29/20 05:20 05:20 00:10 Hct 33.8 L MPV 11.3 H Monocytes % (Manual) 13 H Reactive Lymphocytes Sodium 129 L 126 L Potassium 5.2 H Chloride Carbon Dioxide 16 L BUN 66 H Creatinine 1.7 H Glucose Osmolality Uric Acid 9.7 H Phosphorus Triglycerides 151 H 02/28/20 02/28/20 02/28/20 20:02 20:02 15:54 Hct MPV Monocytes % (Manual) Reactive Lymphocytes Sodium 124 L 124 L 121 L Potassium Chloride 94 L Carbon Dioxide 19 L BUN 67 H Creatinine 1.6 H Glucose 119 H Osmolality Uric Acid Phosphorus Triglycerides 02/28/20 02/28/20 02/28/20 12:14 08:11 05:45 Hct MPV Monocytes % (Manual) Reactive Lymphocytes Sodium 123 L 128 L 131 L Potassium Chloride Carbon Dioxide 17 L BUN 83 H Creatinine 2.3 H Glucose Osmolality 303 H Uric Acid 10.3 H Phosphorus 4.9 H Triglycerides 182 H 02/28/20 02/27/20 05:45 16:54 Hct 33.8 L MPV 11.3 H Monocytes % (Manual) Reactive Lymphocytes 4 H Sodium 123 L Potassium 5.7 H Chloride 91 L Carbon Dioxide 19 L BUN 82 H Creatinine 2.2 H Glucose Osmolality Uric Acid Phosphorus Triglycerides Meds: Medications Acetaminophen (Tylenol) 650 mg PO Q4-6HP PRN; Protocol PRN Reason: Per Pain Protocol/Fever > 101 Albuterol Sulfate (Ventolin) 2.5 mg INH DAILY [facility] Last Admin: 02/28/20 09:24 Dose: Not Given Documented by: Bisacodyl (Dulcolax) 10 mg [place] Q2-3DAYS PRN PRN Reason: Constipation Dextrose (Dextrose 50%) 0 ml IV UD PRN PRN Reason: Hypoglycemia Diagnostic Test (Pha) (Accu-Chek) 1 each FS ACHS [facility] Last Admin: 02/29/20 07:19 Dose: 1 each Documented by: Docusate Sodium (Colace) 100 mg PO BID [facility] Last Admin: 02/29/20 08:48 Dose: 100 mg Documented by: Gabapentin (Neurontin) 100 mg PO QHS [facility] Last Admin: 02/28/20 21:29 Dose: 100 mg Documented by: Glucose (Insta-Glucose) 15 gm PO PRN PRN PRN Reason: Hypoglycemia Heparin Sodium (Porcine) (Heparin) 5,000 unit SQ Q12 [facility] Last Admin: 02/29/20 08:47 Dose: 5,000 unit Documented by: Acetaminophen (Ofirmev) 650 mg in 65 mls @ 130 mls/hr IV Q6HP PRN; Protocol PRN Reason: Per Pain Protocol/Fever > 101 Insulin Human Lispro (Humalog) 0 unit SQ [facility]; Protocol Last Admin: 02/29/20 07:22 Dose: Not Given Documented by: Iron Carb/Multivit/[place]/Folic Acid (Multivitamin W/Minerals) 1 tab PO DAILY [facility] Last Admin: 02/29/20 08:48 Dose: 1 tab Documented by: Levothyroxine Sodium (Synthroid) 50 mcg PO ACB [facility] Last Admin: 02/29/20 07:19 Dose: 50 mcg Documented by: Loratadine (Claritin) 10 mg PO QDAY [facility] Last Admin: 02/29/20 08:48 Dose: 10 mg Documented by: Melatonin (Melatonin 3mg Tablet) 3 mg PO HSP PRN PRN Reason: Insomnia Last Admin: 02/28/20 21:29 Dose: 3 mg Documented by: Ondansetron HCl (Zofran Odt) 4 mg SL Q4-6HP PRN; Protocol PRN Reason: Nausea And Vomiting Ondansetron HCl (Zofran) 4 mg IV Q4-6HP PRN; Protocol PRN Reason: Nausea And Vomiting Mometasone Furoate [ (Asmanex Hfa] 2 Puff) 1 dose INH DAILY [facility] Last Admin: 02/29/20 08:49 Dose: Not Given Documented by: Tiotropium Br/Olodaterol Hcl [ Stiolto Respimat Inhaler] 1 dose INH DAILY [facility] Last Admin: 02/29/20 08:50 Dose: Not Given Documented by: Polyethylene Glycol (Miralax) 17 gm PO DAILYP PRN PRN Reason: Constipation Propranolol HCl (Inderal) 20 mg PO QDAY [facility] Last Admin: 02/29/20 08:47 Dose: 20 mg Documented by: Pyridoxine HCl (Vitamin B-6) 100 mg PO QDAY [facility] Last Admin: 02/29/20 08:48 Dose: 100 mg Documented by: Senna/Docusate Sodium (Senna Plus Tablet) 1 tab PO [facility] Last Admin: 02/28/20 21:29 Dose: 1 tab Documented by: Simvastatin (Zocor) 5 mg PO [facility] Last Admin: 02/28/20 21:28 Dose: 5 mg Documented by: Sodium Chloride (Saline Flush) 10 ml IV Q8 [facility] Last Admin: 02/29/20 04:35 Dose: 10 ml Documented by: Trazodone HCl (Desyrel) 50 mg PO HSP PRN PRN Reason: Insomnia Medical - PN: A/P - Time Spent With Patient Total time spent is greater than 50% in coordination of care (as documented) at patient's floor/unit and/or counseling patient: 25 - 35 minutes (1) MADINA (acute kidney injury) Status: Acute Assessment and plan: * Acute kidney injury likely second to volume depletion/diuretic use/JUAN inhibitor. Creatinine 1.6. Nephrology on board. * Hyperkalemia secondary MADINA. Resolved potassium 5.2 * Hyponatremia likely euvolemic-improving sodium at 129. Likely SIADH. On free water restriction. * History of cirrhosis-well compensated. Spironolactone Lasix held in light of MADINA/hyperkalemia * DM type II-continue sliding-scale insulin/diabetic diet * History of hypertension hold JUAN inhibitor in light of MADINA * Hypothyroidism on levothyroxine * History of reactive airway disease continue tiotropium * Hyperlipidemia continue statin * Neuropathy on gabapentin * Prophylax Heparin * Full code Plan * Continue renal failure/hyperkalemia/hyponatremia management per nephrology * Pre-existing medical condition management as above * Diabetic diet/PT OT * Discharge planning likely in 24 hours Current Visit: Yes Medical - PN: Qual - Stroke Symptom Onset Unknown: No - VTE Deep Vein Thrombosis/Pulmonary Embolism Present on Admission: No
[2020-02-29] MEDS: ALBUTEROL SULFATE 2.5 MG/3 ML NEBULIZER INH SCH (10:51)
[2020-02-29] MEDS: GABAPENTIN 100 MG CAPSULE PO SCH (20:32)
[2020-02-29] MEDS: SIMVASTATIN 10 MG TABLET PO SCH (20:32)
[2020-02-29] MEDS: SENNOSIDES/DOCUSATE SODIUM 1 TAB TABLET PO SCH (20:32)
[2020-02-29 21:10] LABS: Albumin 4.1 gm/dL (3.2-5.2); Blood Urea Nitrogen 66 mg/dl (8-23); Carbon Dioxide 18 mmol/L (22-30); Glomerular Filtration Rate 26; Glucose 87 mg/dL (70-105); Phosphorous 4.2 mg/dL (2.7-4.5)
[2020-02-29 21:35] LABS: Chloride 94 mmol/L (96-108)
[2020-02-29] MEDS ORDERED: SODIUM POLYSTYRENE SULFONATE 15 GM/60 ML SUSPENSION PO ONE (21:48)
[2020-02-29] MEDS ORDERED: SODIUM POLYSTYRENE SULFONATE 15 GM/60 ML SUSPENSION ONE (22:04)
[2020-03-01 06:30] LABS: Hematocrit 33.2 % (34.1-44.9); Hemoglobin 11.5 g/dL (11.2-15.7); Mean Corpuscular HGB Conc 34.6 g/dL (31.0-36.0); Mean Platelet Volume 11.2 fL (7.4-10.4); Platelet Count 300 K/mcL (140-440); RBC 3.61 M/mcL (3.59-5.38); Red Cell Distribution Width 12.1 % (11.5-14.5); WBC 7.9 K/mcL (4.50-11.00)
[2020-03-01] MEDS: 0.9 % SODIUM CHLORIDE 10 ML SYRINGE IV SCH ×2 (06:32→06:38)
[2020-03-01 07:02] LABS: ALT/SGPT 14 U/l (0-40); AST/SGOT 19 U/l (0-37); Albumin 3.9 gm/dL (3.2-5.2); Albumin/Globulin Ratio 1.3 (1.0-2.3); Alkaline Phosphatase 44 U/L (39-117); Bilirubin,Direct < 0.2 mg/dL (0.0-0.3); Bilirubin,Total 0.4 mg/dL (0.0-1.0); Blood Urea Nitrogen 63 mg/dl (8-23); Calcium 9.2 mg/dl (8.6-10.4); Carbon Dioxide 18 mmol/L (22-30); Chloride 98 mmol/L (96-108); Globulin 2.9 gm/dL (2.2-3.7); Glomerular Filtration Rate 23; Glucose 101 mg/dL (70-105); Lactate Dehydrogenase 179 U/L (94-250); Phosphorous 3.9 mg/dL (2.7-4.5); Triglycerides 131 mg/dl (<150); Uric Acid 9.6 mg/dL (2.5-8.0)
[2020-03-01] MEDS: INSULIN LISPRO 1 UNIT/0.01 ML UNIT SQ SCH ×4 (07:15→20:26)
[2020-03-01] MEDS: LEVOTHYROXINE 25 MCG TABLET PO SCH (07:20)
[2020-03-01 07:25] LABS: Eosinophils % (Manual) 2 % (0-7); Lymphocytes % 39 % (15-49); Monocytes % (Manual) 12 % (1-12); Platelet Estimate NORMAL (NORMAL); RBC Morphology NORMAL (NORMAL); Segmented Neutrophils % 47 % (38-78)
[2020-03-01] MEDS: 0.9 % SODIUM CHLORIDE 250 ML IV SCH ×8 (07:41→22:53)
--- NOTE | 2020-03-01 08:13 | Internal Med Progress Note ---
Medical - PN: Subj Patient information: Note initiated : 03/01/20 at 8:11 am Service Date, if different from initiated Date: [] Patient: Shelia Saucedo a 74 y/o F admitted on 02/27/20 for Increased labs. Chief Complaint: [] Interval history: Ms. Saucedo is a 74 year old F with a history of diabetes/hypertension/schiz oaffective disorder liver cirrhosis who presents to the ER after progressive weakness that evolved over the last 4 weeks. Her symptoms have gotten worse with increasing fatigue, malaise, difficulty functioning. She lives with her and has been trying to figure out what might be causing her symptoms. With increasing concerns today underwent evaluation and was directed to the ER with abnormal labs from her PCP. Initial work-up was consistent with acute renal failure with a BUN 82, crea tinine 2.2, sodium 133 and potassium 5.7. Nephrology and hospitalist service was consulted for evaluation. At the time of my evaluation patient is alert and was able to answer most the question. She denies recent NSAID intake or diarrhea, nausea, vomiting, fever or chills. She further denies difficulty urinating or increasing frequency. She denies generalized body or extremity swelling. She endorses to less frequent voiding. 02/27-patient doing well. However creatinine slightly elevated at 2.3. Sodium 128. Continue every 4 hours sodium checks. No overnight fever chills. Ongoing management per nephrology. Renal ultrasound no evidence of hydronephrosis, still systolics around 110. No concerns expressed by nursing staff 02/28-patient doing well. No overnight events. No concerns per staff. Creatinine down to 1.7, sodium 129. Potassium 5.2. Hemodynamic stable except for systolics around low 90s. Asymptomatic. Tolerating diet and ambulating. Ongoing physical therapy. Anticipate discharge in 24 hours pending clinical improvement. 03/01-patient status quo. Creatinine up to 2.1. Sodium 132, potassium down from 5.9-5.2. Nephrology on board. Patient tearful. Ongoing physical therapy. Tolerating diet. Case discussed with nephrology. Will monitor additional 24 to 48 hours. - Constitutional Vitals: Vital Signs Temp Pulse Resp BP Pulse Ox 97.7 F 78 14 107/63 96 03/01/20 06:04 03/01/20 06:04 03/01/20 06:04 03/01/20 06:04 03/01/20 06:04 Period Temp Pulse Resp BP Sys/Dockery Pulse Ox Last 24 Hr 97.5 F-98.3 F 68-89 14-20 84-126/50-69 92-98 Intake and Output 02/29/20 03/01/20 03/01/20 21:59 05:59 13:59 Intake Total 240 600 480 Output Total 400 300 500 Balance -160 300 -20 Weight 197 lb Intake & Output: Intake & Output 02/29/20 03/01/20 03/01/20 21:59 05:59 13:59 Intake Total 240 600 480 Output Total 400 300 500 Balance -160 300 -20 Weight 197 lb Intake: Oral 240 600 480 Output: Void Amount 400 300 500 Other: Meal Dinner Breakfast Percent of Meal Consumed 90 90 Feeding Ability Independent Independent Urine Appearance Clear Clear Urine Color Bright Yellow Bright Yellow Urine Odor Normal Stool Size Small Stool Color Brown Stool Consistency Formed # Voids 1 # Bowel Movements 1 Exam: Anxious and tearful Nonlabored breathing No lymphedema Medical - PN: Obj Da - Labs CBC & Chem 7: 03/01/20 05:15 03/01/20 05:15 Labs: Abnormal Lab Results 03/01/20 03/01/20 02/29/20 05:15 05:15 17:00 Hct 33.2 L MPV 11.2 H Monocytes % (Manual) Reactive Lymphocytes Sodium 132 L 128 L Potassium 5.2 H 5.9 H* Chloride 94 L Carbon Dioxide 18 L 18 L BUN 63 H 66 H Creatinine 2.1 H 1.9 H Glucose Osmolality Uric Acid 9.6 H Phosphorus Triglycerides 02/29/20 02/29/20 02/29/20 05:20 05:20 00:10 Hct 33.8 L MPV 11.3 H Monocytes % (Manual) 13 H Reactive Lymphocytes Sodium 129 L 126 L Potassium 5.2 H Chloride Carbon Dioxide 16 L BUN 66 H Creatinine 1.7 H Glucose Osmolality Uric Acid 9.7 H Phosphorus Triglycerides 151 H 02/28/20 02/28/20 02/28/20 20:02 20:02 15:54 Hct MPV Monocytes % (Manual) Reactive Lymphocytes Sodium 124 L 124 L 121 L Potassium Chloride 94 L Carbon Dioxide 19 L BUN 67 H Creatinine 1.6 H Glucose 119 H Osmolality Uric Acid Phosphorus Triglycerides 04/02/28/20 02/28/20 12:14 08:11 05:45 Hct MPV Monocytes % (Manual) Reactive Lymphocytes Sodium 123 L 128 L 131 L Potassium Chloride Carbon Dioxide 17 L BUN 83 H Creatinine 2.3 H Glucose Osmolality 303 H Uric Acid 10.3 H Phosphorus 4.9 H Triglycerides 182 H 02/28/20 02/27/20 05:45 16:54 Hct 33.8 L MPV 11.3 H Monocytes % (Manual) Reactive Lymphocytes 4 H Sodium 123 L Potassium 5.7 H Chloride 91 L Carbon Dioxide 19 L BUN 82 H Creatinine 2.2 H Glucose Osmolality Uric Acid Phosphorus Triglycerides Meds: Medications Acetaminophen (Tylenol) 650 mg PO Q4-6HP PRN; Protocol PRN Reason: Per Pain Protocol/Fever > 101 Albuterol Sulfate (Ventolin) 2.5 mg INH DAILY [facility] Last Admin: 02/29/20 10:51 Dose: Not Given Documented by: Bisacodyl (Dulcolax) 10 mg [place] Q2-3DAYS PRN PRN Reason: Constipation Dextrose (Dextrose 50%) 0 ml IV UD PRN PRN Reason: Hypoglycemia Diagnostic Test (Pha) (Accu-Chek) 1 each FS [facility] Last Admin: 03/01/20 07:13 Dose: 1 each Documented by: Docusate Sodium (Colace) 100 mg PO BID [facility] Last Admin: 02/29/20 20:32 Dose: 100 mg Documented by: Gabapentin (Neurontin) 100 mg PO QHS [facility] Last Admin: 02/29/20 20:32 Dose: 100 mg Documented by: Glucose (Insta-Glucose) 15 gm PO PRN PRN PRN Reason: Hypoglycemia Heparin Sodium (Porcine) (Heparin) 5,000 unit SQ Q12 [facility] Last Admin: 02/29/20 20:31 Dose: 5,000 unit Documented by: Acetaminophen (Ofirmev) 650 mg in 65 mls @ 130 mls/hr IV Q6HP PRN; Protocol PRN Reason: Per Pain Protocol/Fever > 101 Sodium Chloride (Sodium Chloride 0.9%) 250 mls @ 100 mls/hr IV .Q2H30M [facility] Last Admin: 03/01/20 07:41 Dose: 100 mls/hr Documented by: Insulin Human Lispro (Humalog) 0 unit SQ [facility]; Protocol Last Admin: 04/16/20 07:15 Dose: Not Given Documented by: Iron Carb/Multivit/[place]/Folic Acid (Multivitamin W/Minerals) 1 tab PO DAILY [facility] Last Admin: 02/29/20 08:48 Dose: 1 tab Documented by: Levothyroxine Sodium (Synthroid) 50 mcg PO ACB [facility] Last Admin: 03/01/20 07:20 Dose: 50 mcg Documented by: Loratadine (Claritin) 10 mg PO QDAY [facility] Last Admin: 02/29/20 08:48 Dose: 10 mg Documented by: Melatonin (Melatonin 3mg Tablet) 3 mg PO HSP PRN PRN Reason: Insomnia Last Admin: 02/28/20 21:29 Dose: 3 mg Documented by: Ondansetron HCl (Zofran Odt) 4 mg SL Q4-6HP PRN; Protocol PRN Reason: Nausea And Vomiting Ondansetron HCl (Zofran) 4 mg IV Q4-6HP PRN; Protocol PRN Reason: Nausea And Vomiting Mometasone Furoate [ (Asmanex Hfa] 2 Puff) 1 dose INH DAILY [facility] Last Admin: 02/29/20 08:49 Dose: Not Given Documented by: Tiotropium Br/Olodaterol Hcl [ Stiolto Respimat Inhaler] 1 dose INH DAILY [facility] Last Admin: 02/29/20 08:50 Dose: Not Given Documented by: Polyethylene Glycol (Miralax) 17 gm PO DAILYP PRN PRN Reason: Constipation Propranolol HCl (Inderal) 20 mg PO QDAY [facility] Last Admin: 02/29/20 08:47 Dose: 20 mg Documented by: Pyridoxine HCl (Vitamin B-6) 100 mg PO QDAY [facility] Last Admin: 02/29/20 08:48 Dose: 100 mg Documented by: Senna/Docusate Sodium (Senna Plus Tablet) 1 tab PO [facility] Last Admin: 02/29/20 20:32 Dose: 1 tab Documented by: Simvastatin (Zocor) 5 mg PO [facility] Last Admin: 02/29/20 20:32 Dose: 5 mg Documented by: Trazodone HCl (Desyrel) 50 mg PO HSP PRN PRN Reason: Insomnia Last Admin: 02/29/20 20:32 Dose: 50 mg Documented by: Medical - PN: A/P - Time Spent With Patient Total time spent is greater than 50% in coordination of care (as documented) at patient's floor/unit and/or counseling patient: 15 - 24 minutes (1) MADINA (acute kidney injury) Status: Acute Assessment and plan: * Acute kidney injury likely second to volume depletion/spironolactone/JUAN inhibitor. Creatinine uptrending now at 2.1 * Hyperkalemia secondary MADINA. Potassium 5.9 down to 5.2, managed per nephrology * Hyponatremia likely euvolemic-improving sodium at 132. Likely SIADH. On free water restriction. * History of cirrhosis-well compensated. Spironolactone/Lasix held in light of MADINA/hyperkalemia * DM type II-continue sliding-scale insulin/diabetic diet * History of hypertension held JUAN inhibitor in light of MADINA * Hypothyroidism on levothyroxine * History of reactive airway disease continue tiotropium * Hyperlipidemia continue statin * Neuropathy on gabapentin * Prophylax Heparin * Full code Plan * Continue renal failure/hyperkalemia/hyponatremia management per nephrology * Pre-existing medical condition management as above * Diabetic diet/PT OT * Discharge planning once clinical improvement noted. Current Visit: Yes Medical - PN: Qual - Stroke Symptom Onset Unknown: No - VTE Deep Vein Thrombosis/Pulmonary Embolism Present on Admission: No
[2020-03-01] MEDS: LORATADINE 10 MG TABLET PO SCH (08:49)
[2020-03-01] MEDS: MULTIVIT,THER IRON,CA,FA & MIN 1 TABLET PO SCH (08:49)
[2020-03-01] MEDS: DOCUSATE SODIUM 100 MG CAPSULE PO SCH ×2 (08:49→20:23)
[2020-03-01] MEDS: MOMETASONE FUROATE INH SCH (08:49)
[2020-03-01] MEDS: PROPRANOLOL 40 MG TABLET PO SCH (08:49)
[2020-03-01] MEDS: HEPARIN 5,000 UNIT/ML VIAL SQ SCH ×2 (08:49→20:25)
[2020-03-01] MEDS: PYRIDOXINE 100 MG TABLET PO SCH (08:49)
[2020-03-01] MEDS: ALBUTEROL SULFATE 2.5 MG/3 ML NEBULIZER INH SCH (08:50)
[2020-03-01] MEDS: Tiotropium Br/Olodaterol Hcl [Stiolto Respimat Inhaler] INH SCH (08:50)
[2020-03-01 10:36] LABS: Chloride,Urine Random < 20 mmol/L; Potassium,Urine Random 20.6 mmol/L; Sodium, Urine Random 22 mmol/L
--- NOTE | 2020-03-01 16:34 | Nephrology Progress Note ---
Subjective Patient information: Note initiated : 03/01/20 at 4:32 pm Service Date, if different from initiated Date: [] Patient: Shelia Saucedo 74 y/o F admitted on 02/27/20 for Increased labs. Chief Complaint: [] Principal diagnosis: MADINA Interval history: She was says she could not be released today; she was in a chair at the time of my visit. Dillon was removed yesterday 02/29/2020. Hyperkalemia noted last evening, she received several stool softeners and a dose of Kayexalate Had a small BM today Physical exam Vital signs reviewed HEENT head is normocephalic and atraumatic. She has nonicteric sclera Nonlabored respirations, on room air, clear to auscultation bilaterally Regular rate and rhythm, no lower extremity edema Abdomen soft, nontender Patient is alert, oriented. Pertinent ROS: Denies shortness of breath, edema. Complains of abdominal distention that she attributes to constipation Objective - Vital Signs Vital signs: Vital Signs Temp Pulse Resp BP BP Pulse Ox 03/01/20 16:00 36.4 C 20 99/60 96 03/01/20 14:00 36.4 C 20 108/64 95 03/01/20 12:00 36.6 C 90 14 119/69 95 03/01/20 10:00 36.3 C 93 H 14 102/66 95 03/01/20 08:00 35.8 C L 88 14 100/58 95 03/01/20 06:04 36.5 C 78 14 107/63 96 03/01/20 04:00 36.8 C 79 16 92/56 97 03/01/20 02:00 36.8 C 89 16 101/63 95 03/01/20 00:00 36.8 C 87 20 102/50 95 02/29/20 21:32 36.6 C 71 17 98/61 98 02/29/20 20:00 36.4 C 79 14 126/65 97 02/29/20 18:40 36.4 C 68 16 93/58 98 Intake and Output 03/01/20 03/01/20 03/01/20 05:59 13:59 21:59 Intake Total 600 970 480 Output Total 300 500 550 Balance 300 470 -70 Intake: IV 250 Sodium Chloride 0.9% 250 ml @ 250 100 mls/hr IV .Q2H30M [facility] Rx#: [id number] Oral 600 480 480 GI Tube Flush 240 Output: Void Amount 300 500 550 Other: Meal Breakfast Lunch Percent of Meal Consumed 90 100% Feeding Ability Independent Urine Appearance Clear Clear Urine Color Bright Yellow Bright Yellow Urine Odor Normal Stool Size Small Stool Color Brown Stool Consistency Formed # Bowel Movements 1 Intake & Output: Intake & Output 03/01/20 03/01/20 03/01/20 05:59 13:59 21:59 Intake Total 600 970 480 Output Total 300 500 550 Balance 300 470 -70 Intake: IV 250 Sodium Chloride 0.9% 250 ml @ 250 100 mls/hr IV .Q2H30M [facility] Rx#: [id number] Oral 600 480 480 GI Tube Flush 240 Output: Void Amount 300 500 550 Other: Meal Breakfast Lunch Percent of Meal Consumed 90 100% Feeding Ability Independent Urine Appearance Clear Clear Urine Color Bright Yellow Bright Yellow Urine Odor Normal Stool Size Small Stool Color Brown Stool Consistency Formed # Bowel Movements 1 - Lab 03/01/20 05:15 03/01/20 05:15 Most recent lab results Calcium 9.2 mg/dl (8.6-10.4) 03/01/20 05:15 Phosphorus 3.9 mg/dL (2.7-4.5) 03/01/20 05:15 Magnesium 2.5 mg/dL (1.6-2.5) 03/01/20 05:15 Assessment and Plan (1) MADINA (acute kidney injury) Status: Acute Priority: High (2) Azotemia Status: Acute Priority: Medium (3) Hyperkalemia Status: Acute Priority: Medium (4) Fatigue Status: Acute - Narrative A/P Narrative: SCR 2.1, SCR autumn 1.6 on 02/28/2020. On the day of presentation SCR was 2.5. I suspect that her MADINA is multifactorial. She was on Spironolactone, lisinopril, furosemide, she had impaired autoregulation. On top of that she had a component of urinary retention, when the Dillon was initially placed she had 1 L urine output. Continue strict I's and O's, avoid nephrotoxins, daily weight. No diuretic for the time being *Give 250 cc normal saline *Free water restriction of 1.7 L *Continue renal diet Hyponatremia, improving. Patient mentioned that she drank "a ton of water ". On free water restriction as above Azotemia Improving Hemodynamics and volume Clinically euvolemic, normotensive to low normal blood pressure. Acid-base within the limitation of not having a blood gas, suspect metabolic acidosis secondary to renal disease, improving, serum bicarbonate 18 Bone mineral calcium, magnesium, phosphorus within lab reference range. Continue renal diet Hematologic White count, platelet count, hemoglobin within lab reference range Patient asked me if I could update her family over the phone. With her permission I called her and explained that the patient had MADINA, hyponatremia, hyperkalemia. I explained in lay terms that her renal function was decreased and we were waiting for it to stabilize before sending her home. I referred him to [facility] for further information about serum creatinine/EGFR/kidney disease. He voiced understanding and thanked me for the update. Same held true for the patient Approximately 20 minutes spent coordinating patient care, discussing with primary team, the patient and her as described above
[2020-03-01] MEDS: GABAPENTIN 100 MG CAPSULE PO SCH (20:22)
[2020-03-01] MEDS: SIMVASTATIN 10 MG TABLET PO SCH (20:23)
[2020-03-01] MEDS: SENNOSIDES/DOCUSATE SODIUM 1 TAB TABLET PO SCH (20:23)
[2020-03-01] MEDS: traZODone HCL 50 MG TABLET PO PRN (20:23)
[2020-03-01] MEDS: MELATONIN 3 MG TABLET PO PRN (23:17)
[2020-03-02 06:20] LABS: Hematocrit 32.9 % (34.1-44.9); Hemoglobin 11.3 g/dL (11.2-15.7); Mean Cell Volume 93.2 fL (80.0-100.0); Mean Corpuscular HGB Conc 34.3 g/dL (31.0-36.0); Mean Platelet Volume 10.9 fL (7.4-10.4); Platelet Count 270 K/mcL (140-440); RBC 3.53 M/mcL (3.59-5.38); Red Cell Distribution Width 12.2 % (11.5-14.5)
[2020-03-02 06:53] LABS: ALT/SGPT 16 U/l (0-40); AST/SGOT 21 U/l (0-37); Albumin 3.7 gm/dL (3.2-5.2); Albumin/Globulin Ratio 1.3 (1.0-2.3); Alkaline Phosphatase 44 U/L (39-117); Bilirubin,Direct < 0.2 mg/dL (0.0-0.3); Bilirubin,Total 0.4 mg/dL (0.0-1.0); Calcium 8.9 mg/dl (8.6-10.4); Carbon Dioxide 18 mmol/L (22-30); Chloride 101 mmol/L (96-108); Globulin 2.9 gm/dL (2.2-3.7); Glucose 116 mg/dL (70-105); Lactate Dehydrogenase 183 U/L (94-250); Phosphorous 3.3 mg/dL (2.7-4.5); Triglycerides 112 mg/dl (<150)
[2020-03-02 06:55] LABS: Blood Urea Nitrogen 48 mg/dl (8-23); Glomerular Filtration Rate 31
[2020-03-02 06:57] LABS: Band Neutrophils % 1 % (0-10); Basophils % (Manual) 1 % (0-2); Eosinophils % (Manual) 3 % (0-7); Lymphocytes % 29 % (15-49); Monocytes % (Manual) 16 % (1-12); Platelet Estimate NORMAL (NORMAL); RBC Morphology NORMAL (NORMAL); Segmented Neutrophils % 50 % (38-78)
[2020-03-02] MEDS: INSULIN LISPRO 1 UNIT/0.01 ML UNIT SQ SCH (07:18)
[2020-03-02] MEDS: PROPRANOLOL 40 MG TABLET PO SCH (08:48)
[2020-03-02] MEDS: MULTIVIT,THER IRON,CA,FA & MIN 1 TABLET PO SCH (08:48)
[2020-03-02] MEDS: DOCUSATE SODIUM 100 MG CAPSULE PO SCH (08:48)
[2020-03-02] MEDS: LEVOTHYROXINE 25 MCG TABLET PO SCH (08:49)
[2020-03-02] MEDS: ALBUTEROL SULFATE 2.5 MG/3 ML NEBULIZER INH SCH (08:50)
[2020-03-02] MEDS: Tiotropium Br/Olodaterol Hcl [Stiolto Respimat Inhaler] INH SCH (08:50)
[2020-03-02] MEDS: HEPARIN 5,000 UNIT/ML VIAL SQ SCH (08:50)
[2020-03-02] MEDS: MOMETASONE FUROATE INH SCH (08:50)
[2020-03-02] MEDS: LORATADINE 10 MG TABLET PO SCH (08:51)
[2020-03-02] MEDS: PYRIDOXINE 100 MG TABLET PO SCH (08:51)
--- NOTE | 2020-03-02 08:55 | Discharge Summary ---
Medical - DS: Prov Patient information: Note initiated : 03/02/20 at 8:53 am Service Date, if different from initiated Date: [] Patient: Shelia Saucedo 74 y/o F admitted on 02/27/20 for Increased labs. Chief Complaint: [] Date of admission: 02/27/20 20:23 Discharge date: 03/02/20 Primary care physician: JOSHUA Gordon Consults: 02/27/20 Consult to Physician [CONS] Stat Comment: Consulting Provider: Los Lawson Reason For Exam: Physician to Consult Consult to Physician [CONS] Stat Comment: Consulting Provider: Precious Carty Reason For Exam: Physician to Consult Medical - DS: Meds - Discharge Medications Prescriptions: amLODIPine [Norvasc] 5 mg PO DAILYP PRN #30 tab PRN Reason: Systolics >140 Transmission Status: Received by [id number] Active and Home Medications: Home Medications dietary supplement 1 cap PO QDAY cap 07/14/16 [History Confirmed 02/27/20 Last Taken 02/27/20 08:00] pyridoxine (vitamin B6) 100 mg tablet 100 mg PO QDAY tab 07/14/16 [History Confirmed 02/27/20 Last Taken 02/27/20 08:00] vitamin B complex 1 tab PO QDAY tab 07/14/16 [History Confirmed 02/27/20 Last Taken 02/27/20 08:00] cholecalciferol (vitamin D3) 25 mcg (1,000 unit) capsule 1,000 unit PO QDAY 06/20/19 [History Confirmed 02/27/20 Last Taken 02/27/20 08:00] colesevelam 625 mg tablet 1,875 mg PO QDAY tab 06/20/19 [History Confirmed 02/28/20 Last Taken Unknown] multivitamin 1 dose PO QDAY 06/20/19 [History Confirmed 02/27/20 Last Taken 02/27/20 09:00] nystatin 100,000 unit/gram topical cream 1 applic TOPICAL TID PRN 06/20/19 [History Confirmed 02/27/20 Last Taken 02/27/20 07:00] lovastatin 20 mg tablet 20 mg PO QHS #90 tab 08/30/19 [Rx Confirmed 02/27/20 Last Taken 02/26/20 21:00] gabapentin 100 mg capsule 100 mg PO QHS #30 cap 11/22/19 [Rx Confirmed 02/27/20 Last Taken 02/26/20 21:00] mometasone 100 mcg/actuation HFA aerosol inhaler 2 puff INHALATION DAILY 11/29/19 [History Confirmed 02/27/20 Last Taken 02/27/20 08:00] tiotropium 2.5 mcg-olodaterol 2.5 mcg/actuation mist for inhalation 2 puff INHALATION QDAY 11/29/19 [History Confirmed 02/27/20 Last Taken 02/27/20 08:00] albuterol sulfate 2.5 mg INHALATION DAILY ml 11/30/19 [History Confirmed 02/27/20 Last Taken 02/27/20 08:00] propranolol 40 mg tablet 20 mg PO QDAY #60 tab 12/06/19 [Rx Confirmed 02/27/20 Last Taken 02/27/20 08:00] loratadine 10 mg tablet 10 mg PO QDAY #90 tab 12/09/19 [Rx Confirmed 02/27/20 Last Taken 02/27/20 08:00] [Accu-Chek Compact Test strips] 0 er SQ DAILY 02/27/20 [History Confirmed 02/27/20 Last Taken 02/27/20 08:00] Levothyroxine Sodium 50 mcg PO ACB 02/27/20 [History Confirmed 02/28/20 Last Taken 02/26/20 07:00] amLODIPine [Norvasc] 5 mg PO DAILYP PRN #30 tab 03/02/20 [Rx Last Taken Unknown] Medical - DS: Hosp Hospital Course: Discharge diagnosis * Acute kidney injury likely second to volume depletion/spironolactone/JUAN inhibitor. Creatinine improved 1.6 down from 2.1. Per nephrology lisinopril/amlodipine/Lasix/spironolactone held. We will follow-up with nephrology * Hyperkalemia secondary MADINA. Potassium normalized. * Hyponatremia likely euvolemic-sodium at 132 * History of cirrhosis-well compensated. Spironolactone/Lasix held in light of MADINA/hyperkalemia. Will be restarted as per nephrology following outpatient visit * DM type II-continue sliding-scale insulin/diabetic diet * History of hypertension held JUAN inhibitor in light of MADINA * Hypothyroidism on levothyroxine * History of reactive airway disease continue tiotropium * Hyperlipidemia continue statin * Neuropathy on gabapentin Brief hospital course Ms. Saucedo is a 74 year old F with a history of diabetes/hypertension/schizoaffective disorder liver cirrhosis who presents to the ER after progressive weakness that evolved over the last 4 weeks. Her symptoms have gotten worse with increasing fatigue, malaise, difficulty functioning. She lives with her and has been trying to figure out what might be causing her symptoms. With increasing concerns today underwent evaluation and was directed to the ER with abnormal labs from her PCP. Initial work-up was consistent with acute renal failure with a BUN 82, creatinine 2.2, sodium 133 and potassium 5.7. Nephrology and hospitalist service was consulted for evaluation. At the time of my evaluation patient is alert and was able to answer most the question. She denies recent NSAID intake or diarrhea, nausea, vomiting, fever or chills. She further denies difficulty urinating or increasing frequency. She denies generalized body or extremity swelling. She endorses to less frequent voiding. 02/27-patient doing well. However creatinine slightly elevated at 2.3. Sodium 128. Continue every 4 hours sodium checks. No overnight fever chills. Ongoing management per nephrology. Renal ultrasound no evidence of hydronephrosis, still systolics around 110. No concerns expressed by nursing staff 02/28-patient doing well. No overnight events. No concerns per staff. Creatinine down to 1.7, sodium 129. Potassium 5.2. Hemodynamic stable except for systolics around low 90s. Asymptomatic. Tolerating diet and ambulating. Ongoing physical therapy. Anticipate discharge in 24 hours pending clinical improvement. 03/01-patient status quo. Creatinine up to 2.1. Sodium 132, potassium down from 5.9-5.2. Nephrology on board. Patient tearful. Ongoing physical therapy. Tolerating diet. Case discussed with nephrology. Will monitor additional 24 to 48 hours. 03/02-patient doing well. Creatinine 1.6. Potassium normalized. Discharging as per recommendations from nephrology. Hold spironolactone/Lasix/amlodipine/lisinopril and follow-up with nephrology as advised. Discharge diagnosis: . - Time Spent with Patient Total time spent providing and/or coordinating discharge services: Greater than 30 minutes Medical - DS: Exam - Constitutional Vitals: Vital Signs Temp Pulse Resp BP Pulse Ox 04/17/20 06:53 98.6 F 88 18 117/69 96 03/02/20 05:50 98.1 F 81 17 102/58 95 03/02/20 04:00 98.1 F 92 H 17 96/64 94 03/02/20 02:00 97.5 F 114 H 16 115/73 98 03/02/20 00:03 88 03/01/20 23:40 98 F 84 16 105/60 94 03/01/20 22:00 98.6 F 90 16 110/65 96 03/01/20 20:24 79 03/01/20 20:00 98.1 F 84 16 110/66 97 03/01/20 17:48 97.9 F 20 97/68 97 03/01/20 16:00 97.6 F 20 99/60 96 03/01/20 14:00 97.6 F 20 108/64 95 03/01/20 12:00 97.8 F 90 14 119/69 95 03/01/20 10:00 97.3 F 93 H 14 102/66 95 Intake and Output 03/01/20 03/02/20 03/02/20 21:59 05:59 13:59 Intake Total 880 360 480 Output Total 1000 250 Balance -120 110 480 Intake: Oral 480 120 480 GI Tube Flush 400 240 Output: Void Amount 1000 250 Other: Meal Lunch Breakfast Percent of Meal Consumed 100% 75% Feeding Ability Independent Urine Appearance Clear Clear Urine Color Pale Bright Yellow Urine Odor Normal Normal Stool Size Small Stool Color Brown Stool Consistency Formed Anh # Voids 2 1 # Bowel Movements 1 Weight 201 lb 8 oz Medical - DS: Data Labs on day of discharge: Labs from last 24 hours 03/02/20 03/02/20 03/01/20 05:20 05:20 08:06 WBC 8.0 RBC 3.53 L Hgb 11.3 Hct 32.9 L MCV 93.2 MCH 32.0 MCHC 34.3 RDW 12.2 Plt Count 270 MPV 10.9 H Total Counted 100 Seg Neutrophils % 50 Band Neutrophils % 1 Lymphocytes % 29 Monocytes % (Manual) 16 H Eosinophils % (Manual) 3 Basophils % (Manual) 1 Platelet Estimate Normal RBC Morphology Normal Sodium 132 L Potassium 4.9 Chloride 101 Carbon Dioxide 18 L Anion Gap 13.0 BUN 48 H Creatinine 1.6 H GFR Calculation 31 Glucose 116 H Uric Acid 9.0 H Calcium 8.9 Phosphorus 3.3 Magnesium 2.6 H Total Bilirubin 0.4 Direct Bilirubin < 0.2 GGT 8 AST 21 ALT 16 Alkaline Phosphatase 44 Lactate Dehydrogenase 183 Total Protein 6.6 Albumin 3.7 Globulin 2.9 Albumin/Globulin Ratio 1.3 Triglycerides 112 Ur Random Creatinine 47.1 Ur Random Sodium Ur Random Potassium Ur Random Chloride 03/01/20 08:06 WBC RBC Hgb Hct MCV MCH MCHC RDW Plt Count MPV Total Counted Seg Neutrophils % Band Neutrophils % Lymphocytes % Monocytes % (Manual) Eosinophils % (Manual) Basophils % (Manual) Platelet Estimate RBC Morphology Sodium Potassium Chloride Carbon Dioxide Anion Gap BUN Creatinine GFR Calculation Glucose Uric Acid Calcium Phosphorus Magnesium Total Bilirubin Direct Bilirubin GGT AST ALT Alkaline Phosphatase Lactate Dehydrogenase Total Protein Albumin Globulin Albumin/Globulin Ratio Triglycerides Ur Random Creatinine Ur Random Sodium 22 Ur Random Potassium 20.6 Ur Random Chloride < 20 Medical - DS: A/P - Patient/Caregiver Discharge Instructions Activity: as per physical therapy Diet: Renal/Consistent Carbs Additional Instructions: Follow-up PCP in 5 days Follow-up nephrology as advised by Dr. Harvey DEL CASTILLO metformin Hold JUAN inhibitor/spironolactone/Lasix/amlodipine., Can use amlodipine 5 mg as needed if systolics over 140 per nephrology. Continue aggressive bowel regimen to prevent constipation Continue fall precautions Daily weights measurements and take 20 mg Lasix in a.m. and afternoon if weight gain over 3 pounds over baseline or worsening SOB. Call nephrology if inadequate response to Lasix All meals on chair sitting upright at 90 degrees to prevent aspiration Return to ER if worsening fever chills shortness of breath, diarrhea, bleeding Continue diet and activity as advised Discussed importance of medication adherence Please review medication list with patient prior to discharge Please schedule follow-up with PCP/Providers prior to discharge and provide printouts Prescriptions: amLODIPine [Norvasc] 5 mg PO DAILYP PRN #30 tab PRN Reason: Systolics >140 Transmission Status: Received by [facility][id number] - Problem Maintenance (1) MADINA (acute kidney injury) Status: Acute - Follow up Plan Follow up with: Pat Rivers ARNP [Primary Care Provider] - Disposition: Home, Self-Care Prognosis: Fair Rehab Potential: Fair I certify that the patient requires SNF services: No Overall status at discharge: patient is progressing back to baseline Medical - DS: Qual - VTE Deep Vein Thrombosis/Pulmonary Embolism Present on Admission: No
--- NOTE | 2020-03-02 09:38 | Nephrology Progress Note ---
Subjective Patient information: Note initiated : 03/02/20 at 9:36 am Service Date, if different from initiated Date: [] Patient: Shelia Saucedo 74 y/o F admitted on 02/27/20 for Increased labs. Chief Complaint: [] Principal diagnosis: MADINA Interval history: The patient reported during my visit that she was taking more Lasix than she was prescribed. When asked about why, she did not have an answer. I/02 0.2/1.75. Blood pressure normal to low normal. Asymptomatic. Says that she rested well. Physical exam Patient was in a bed at the time of my exam, no acute distress HEENT head is normocephalic, atraumatic. Nonicteric sclera Respiratory nonlabored respirations Extremities no edema Neurologic alert, clear speech, moves all extremities Objective - Vital Signs Vital signs: Vital Signs Temp Pulse Resp BP Pulse Ox 03/02/20 09:15 37.0 C 95 H 20 94/63 96 03/02/20 06:53 37.0 C 88 18 117/69 96 03/02/20 05:50 36.7 C 81 17 102/58 95 03/02/20 04:00 36.7 C 92 H 17 96/64 94 03/02/20 02:00 36.4 C 114 H 16 115/73 98 03/02/20 00:03 88 03/01/20 23:40 36.6 C 84 16 105/60 94 03/01/20 22:00 37.0 C 90 16 110/65 96 03/01/20 20:24 79 03/01/20 20:00 36.7 C 84 16 110/66 97 03/01/20 17:48 36.6 C 20 97/68 97 03/01/20 16:00 36.4 C 20 99/60 96 03/01/20 14:00 36.4 C 20 108/64 95 03/01/20 12:00 36.6 C 90 14 119/69 95 03/01/20 10:00 36.3 C 93 H 14 102/66 95 Intake and Output 03/01/20 03/02/20 03/02/20 21:59 05:59 13:59 Intake Total 880 360 480 Output Total 1000 250 Balance -120 110 480 Intake: Oral 480 120 480 GI Tube Flush 400 240 Output: Void Amount 1000 250 Other: Meal Lunch Breakfast Percent of Meal Consumed 100% 75% Feeding Ability Independent Urine Appearance Clear Clear Urine Color Pale Bright Yellow Urine Odor Normal Normal Stool Size Small Stool Color Brown Stool Consistency Formed Anh # Voids 2 1 # Bowel Movements 1 Weight 91.399 kg Intake & Output: Intake & Output 03/01/20 03/02/20 03/02/20 21:59 05:59 13:59 Intake Total 880 360 480 Output Total 1000 250 Balance -120 110 480 Weight 91.399 kg Intake: Oral 480 120 480 GI Tube Flush 400 240 Output: Void Amount 1000 250 Other: Meal Lunch Breakfast Percent of Meal Consumed 100% 75% Feeding Ability Independent Urine Appearance Clear Clear Urine Color Pale Bright Yellow Urine Odor Normal Normal Stool Size Small Stool Color Brown Stool Consistency Formed Anh # Voids 2 1 # Bowel Movements 1 - Lab 03/02/20 05:20 03/02/20 05:20 Most recent lab results Calcium 8.9 mg/dl (8.6-10.4) 03/02/20 05:20 Phosphorus 3.3 mg/dL (2.7-4.5) 03/02/20 05:20 Magnesium 2.6 mg/dL (1.6-2.5) H 03/02/20 05:20 Assessment and Plan (1) MADINA (acute kidney injury) Status: Acute Priority: Medium (2) Azotemia Status: Acute Priority: Medium (3) Metabolic acidosis Status: Acute Priority: Low (4) Hyponatremia Status: Acute Priority: Low - Narrative A/P Narrative: SCR 1.6 on 03/02/2020, the day of discharge. On the day of presentation SCR was 2.5. I suspect that her MADINA is multifactorial. She was on Spironolactone, lisinopril, furosemide, she had impaired autoregulation. On top of that she had a component of urinary retention, when the [place] was initially placed she had 1 L urine output. On the day of discharge she mentioned that she was taking more furosemide and she was prescribed Renal function improved. Azotemia improved. She is asymptomatic. *Continue daily weight while at home. For weight gain greater or equal to 3 pounds take frusemide 20 mg in the morning and 20 early afternoon until you reach her dry weight. I think that 91.5 is a good estimate of her dry weight. To be adjusted as needed *Otherwise hold spironolactone, furosemide, lisinopril, metformin until she sees me in follow-up next week *Continue low-salt diet maximum 2 to 2.3 g per 24 hours. Start continue free water restriction no more than 1.7 L per 24 hours *Follow-up with renal Saturday, March 07, 2020 Hyponatremia, stable, significantly improved. Patient mentioned that she drank "a ton of water ". On free water restriction as above Azotemia Improved Hyperkalemia Resolved Hemodynamics and volume Clinically euvolemic, normotensive to low normal blood pressure. Acid-base within the limitation of not having a blood gas, suspect metabolic acidosis secondary to renal disease, improving, serum bicarbonate 18. Stable. I expect he will improve over the next few days Bone mineral calcium, magnesium, phosphorus within lab reference range. *Absolutely no magnesium of phosphorus containing stool softeners/enemas Hematologic White count, platelet count, hemoglobin within lab reference range Patient was updated with the findings and plan. All her questions answered.
== END 2020-03-02 10:50 | disposition home or self-care (01) | DRG 683 ==
LOC: ED 14:55 → MEDSUR 20:23
PROVIDERS: ADMIT Internal Medicine; ATTEND Internal Medicine